=== PATIENT | male | born 1965 | race Caucasian/White ===

== ENCOUNTER 2021-08-30 15:19 | Observation (INO) | payer OTHER ==
--- OUTSIDE RECORDS SUMMARY | 2021-08-30 15:25 | XMS REPORT | Continuity of Care Document ---
:1965 Author Organization [facility] t Address [address] [place] [address] Care Team Providers Name Role Phone Pcp, Does Not Have A Primary Care Physician Danni LEBLANC Attending Clinician Unavailable Therapy, Covid Infusion Attending Clinician Unavailable Chante Fraire MD Attending Clinician Yoli Rodriguez MD Attending Clinician JORDANA CARMONA Attending Clinician Unavailable MINDY CARRERO Attending Clinician Unavailable CATY RODRIGUEZ Attending Clinician Unavailable JANIE Attending Clinician Unavailable SHANNON LIMA Attending Clinician Unavailable CECILY MORA Attending Clinician Unavailable Danni LEBLANC Admitting Clinician Unavailable CATY RODRIGUEZ Admitting Clinician Unavailable MINDY CARRERO Admitting Clinician Unavailable Payers Payer Name Policy Type Policy Number Effective Date Expiration Date S issac [employer] HMO POS [id number] 2019 00:00:00 QPOS Problems Condition Condition Condition Status Onset Resolution Last Treating Co mments Source Name Details Category Date Date Treatment Clinician Date No known No known Disease [facility] active active College problems problems of Medicin e Lateral Lateral Problem Active Univers epicondyli epicondyli it y of tis of tis of [place] right right Physici elbow elbow ans Medial Medial Problem Active Univers epicondyli epicondyli it y of tis of tis of [place] right right Physici elbow elbow ans History of History of Problem Resolve Univers arthritis arthritis d ity of [place] Physici ans History of History of Problem Resolve Univers back pain back pain d ity of [place] Phys[facility] ans History of History of Problem Resolve Univers cardiac cardiac d ity of disorder disorder [place] [facility] History of History of Problem Resolve Univers Gallbladde Gallbladde d [place] problem r problem [place] History of History of Problem Resolve Univers hay fever hay fever d ity of [place] [facility] ans History of History of Problem Resolve Univers hemorrhoid hemorrhoid d it y of s s [place] [facility] History of History of Problem Resolve [facility] myocardial myocardial d [place] of infarction [place] [place] History of History of Problem Resolve Univers Tumor Tumor d ity of [place] [facility] ans Allergies, Adverse Reactions, Alerts Allergy Allergy Status Severity Reaction(s) Onset Inactive Treating Comm ents Source Name Type Date Date Clinician Povidone Propensi Active Itching 2018-08 Unive rs -Iodine ty to 0-07 ity of adverse 00:00: [place] reaction 00 Medical s Branch Povidone Propensi Active Itching 2018-08 [facility] Iodine ty to 0-07 [place] adverse 00:00: of reaction 00 Medicin s to e drug Iodine Drug Active Itching 2018-08 Univers Allergy 0-02 ity of 00:00: [place] 00 Medical Branch POVIDONE Allergy Active Itching 2018-08 [facility] -IODINE 0-02 (WITH 00:00: SOAP) 00 Penicill Propensi Active Hives [facility] ins ty to 8-23 [place] adverse 00:00: of reaction 00 Medicin s to e drug PENICILL Allergy Active Hives [facility] INS 1-19 00:00: 00 Penicill Drug Active Hives 0 Univers ins Allergy 9-03 ity of 00:00: [place] 00 Medical Branch Penicill drug Active Univers ins allergy ity of [place] [facility] ans Family History Family Member Diagnosis Comments Start Date Stop Date Source Unknown Family Family history of Other Uni versity of Member malignant neoplasm [place] [facility] Unknown Family Family history of Other Uni versity of Member cerebrovascular [place] [facility] accident (CVA) Unknown Family Family history of Heart Other University of Member trouble [place] [facility] Unknown Family Family history of Other Uni versity of Member hypertension [place] [facility] ians Unknown Family Family history of Other Uni versity of Member arthritis [place] [facility] Social History Social Habit Start Date Stop Date Quantity Comments Source History [facility] ge of Alcohol Binge Medicine History [facility] ge of Alcohol Frequency Medicin e History [facility] ge of Alcohol Std Drinks Medici ne History of tobacco Chews Tobacco Uni versity of use [facility] Alcohol Comment 2021-05-14 2021-05-14 4 beer a week [facility] of 00:00:00 00:00:00 Medicine Tobacco use and 2019-04-09 2019-04-09 Former user [facility] ollege of exposure 00:00:00 00:00:00 Medicine Alcohol intake 2010-07-20 2010-07-20 .71 /d [facility] 00:00:00 00:00:00 [facility] Sex Ass[birth year] At [birth year] Universit y of 00:00:00 00:00:00 [facility] Smoking Status Start Date Stop Date Source Unknown if ever smoked [facility] Never smoker [facility] o f Medicine Medications Ordered Filled Start Stop Current Ordering Indication Dosage Frequency Signature Comments Components Source Medication Medication Date Date Medication? Clinician (SIG) Name Name somaryb 2020-08- No [id number] 500mg 500 mg, IV Univers (XEVUDY) 10-13 Infusion, ity o f 500 mg in 16:00: 15:10 ONCE, [place] NaCl 0.9% 00 :00 Administer Medi clare (NS) 50 mL over 30 Branch MINI-BAG Minutes, On 08/12/21 at 1000, For [address] able 24 hours refrigerat ed or 6 hours at room temperatur e including transporta tion and infusion time.
Dapaglifloz 0 Yes Take by Ba ylor in 05-14 mouth. [place] Propanediol 13:21: of (FARXIGA) 5 37 Medicin MG TABS e Dapaglifloz Yes Take by Ba y[facility] in 05-14 mouth. [place] Propanediol 13:21: of (FARXIGA) 5 37 Medicin MG TABS e Prasugrel Yes Take by Bayl or HCl 05-14 mouth. [place] (EFFIENT) 13:18: of 10 MG TABS 52 Medicin e Prasugrel Yes Take by Bayl or HCl 05-14 mouth. [place] (EFFIENT) 13:18: of 10 MG TABS 52 Medicin e aspirin 81 Yes 81mg Take 81 mg [facility] MG tablet 05-14 by mouth Colleg e 13:18: daily. of 10 Medicin e atorvastati Yes 40mg Take 40 mg Huseyin n (LIPITOR) 05-14 by mouth Ned ege 40 MG 13:18: daily. of tablet 10 Medicin e lorazepam Yes 1mg Take 1 mg [place] juan (ATIVAN) 1 05-14 by mouth Colle ge MG tablet 13:18: as needed of 10 for Medicin Anxiety. e Coenzyme Yes Take by [facility] Q10 (COQ10 05-14 mouth [place] OR) 13:18: daily. of 10 Medicin e MAGNESIUM Yes Take by Bayl or OR 05-14 [facility] 13:18: daily. of 10 Medicin e POTASSIUM Yes Take by Bayl or OR 05-14 mouth. [place] 13:18: of 10 Medicin e Multiple Yes Take by [facility] Vitamins-Mi 05-14 mouth. Colleg e nerals 13:18: of (MULTIVITAM 10 Medicin IN PO) e Ascorbic Yes Take by [facility] Acid 05-14 mouth. [place] (VITAMIN C 13:18: of OR) 10 Medicin e tadalafil Yes 5mg Take 5 mg [place] juan (CIALIS) 5 05-14 by mouth Colle ge MG tablet 13:18: every 48 of 10 hours as Medicin needed for e Erectile Dysfunctio n. Fluticasone Yes by Nasal Ba ylor Propionate 05-14 route two Ned ege (FLONASE 13:18: times of NA) 10 daily. Medicin e aspirin 81 Yes 81mg Take 81 mg [facility] MG tablet 05-14 by mouth Colleg e 13:18: daily. of 10 Medicin e atorvastati Yes 40mg Take 40 mg Huseyin n (LIPITOR) 05-14 by mouth Ned ege 40 MG 13:18: daily. of tablet 10 Medicin e lorazepam Yes 1mg Take 1 mg [place] juan (ATIVAN) 1 05-14 by mouth Colle ge MG tablet 13:18: as needed of 10 for Medicin Anxiety. e Coenzyme Yes Take by [facility] Q10 (COQ10 05-14 mouth [place] OR) 13:18: daily. of 10 Medicin e MAGNESIUM Yes Take by Bayl or OR 05-14 mouth [place] 13:18: daily. of 10 Medicin e POTASSIUM Yes Take by Bayl or OR 05-14 mouth. [place] 13:18: of 10 Medicin e Multiple Yes Take by [facility] Vitamins-Mi 05-14 mouth. Colleg e nerals 13:18: of (MULTIVITAM 10 Medicin IN PO) e Ascorbic Yes Take by [facility] Acid 05-14 mouth. [place] (VITAMIN C 13:18: of OR) 10 Medicin e tadalafil Yes 5mg Take 5 mg [place] ju[place] (CIALIS) 5 05-14 by mouth Colle ge MG tablet 13:18: every 48 of 10 hours as Medicin needed for e Erectile Dysfunctio n. Fluticasone Yes by Nasal [facility] Propionate 05-14 route two [place] e[place] (FLONASE 13:18: times of NA) 10 daily. Medicin e Ticagrelor 2020- No Take by Ba ylor (BRILINTA) 05-14 mouth two Col lege 90 MG TABS 13:18: 00:00 times of 05 :00 daily. Medicin e Ticagrelor 2020- No Take by Ba ylor (BRILINTA) 05-14 mouth two Col lege 90 MG TABS 13:18: 00:00 times of 05 :00 daily. Medicin e Icosapent 2020- No 2g Take 2 g [place] Ethyl 05-14 by mouth [place] (VASCEPA 13:17: 00:00 two times of OR) 17 :00 daily. Medicin e Icosapent 2020- No 2g Take 2 g [place] Ethyl 05-14 by mouth [place] (VASCEPA 13:17: 00:00 two times of OR) 17 :00 daily. Medicin e Ascorbic 2020-0 Yes Take by [facility] r Acid 05-05 mouth. [place] (VITAMIN C 17:55: of OR) 06 Medicin e tadalafil 2020-0 Yes 5mg Take 5 mg [place] (CIALIS) 5 05-05 by mouth Colle ge MG tablet 17:55: every 48 of 06 hours as Medicin needed for e Erectile Dysfunctio n. Fluticasone 2020-0 Yes by Nasal [facility] Propionate 05-05 route two [facility] e[facility] (FLONASE 17:55: times of NA) 06 daily. Medicin e Ticagrelor 2020-0 Yes Take by [place] (BRILINTA) 05-05 mouth two Ned ege 90 MG TABS 17:55: times of 06 daily. Medicin e aspirin 81 2020-0 Yes 81mg Take 81 mg [facility] MG tablet 05-05 by mouth Colleg e 17:55: daily. of Medicin e atorvastati 2020-0 Yes 40mg Take 40 mg [facility] n (LIPITOR) 05-05 by mouth Ned ege 40 MG 17:55: daily. of tablet Medicin e Icosapent 2020-0 Yes 2g Take 2 g Bayl or Ethyl 05-05 by mouth [place] (VASCEPA 17:55: two times of OR) 06 daily. Medicin e lorazepam 2020-0 Yes 1mg Take 1 mg [place] juan (ATIVAN) 1 05-05 by mouth Colle ge MG tablet 17:55: as needed of 06 for Medicin Anxiety. e Coenzyme 2020-0 Yes Take by [place] r Q10 (COQ10 05-05 mouth [place] OR) 17:55: daily. of 06 Medicin e MAGNESIUM 2020-0 Yes Take by Bayl or OR - mouth [place] 17:55: daily. of 06 Medicin e POTASSIUM 2020-0 Yes Take by Bayl or OR 18 mouth. [place] 17:55: of 06 Medicin e Multiple 2020-0 Yes Take by [facility] Vitamins-Mi - mouth. Collevonnie e nerals 17:55: of (MULTIVITAM 06 Medicin IN PO) e Multiple 2019-0 Yes Take by [facility] Vitamins-Mi - mouth. Colleg e nerals 17:51: of (MULTIVITAM 12 Medicin IN PO) e Ascorbic 2019-0 Yes Take by [facility] Acid 04-09 mouth. [place] (VITAMIN C 17:51: of OR) 12 Medicin e Multiple Yes Take by Bay[facility] r Vitamins-Mi - mouth. [facility] nerals 17:51: of (MULTIVITAM 12 Medicin IN PO) e Ascorbic Yes Take by Bay[facility] r Acid - mouth. [place] (VITAMIN C 17:51: of OR) 12 Medicin e Ticagrelor Yes Take by [place] (BRILINTA) 04-09 mouth two Ned ege 90 MG TABS 17:51: times of 11 daily. Medicin e aspirin 81 Yes 81mg Take 81 mg B [facility] MG tablet 04-09 by mouth Colleg e 17:51: daily. of 11 Medicin e atorvastati Yes 40mg Take 40 mg Huseyin n (LIPITOR) 04-09 by mouth Ned ege 40 MG 17:51: daily. of tablet 11 Medicin e Icosapent Yes 2g Take 2 g Bayl or Ethyl 04-09 by mouth [place] (VASCEPA 17:51: two times of OR) 11 daily. Medicin e lorazepam Yes 1mg Take 1 mg [place] (ATIVAN) 1 04-09 by mouth Colle ge MG tablet 17:51: as needed of 11 for Medicin Anxiety. e Coenzyme Yes Take by [facility] Q10 (COQ10 04-09 [facility] OR) 17:51: daily. of 11 Medicin e MAGNESIUM Yes Take by Bayl or OR 04-09 [facility] 17:51: daily. of 11 Medicin e POTASSIUM Yes Take by Bayl or OR 04-09 mouth. [place] 17:51: of 11 Medicin e Ticagrelor Yes Take by [place] (BRILINTA) - mouth two Ned ege 90 MG TABS 17:51: times of 11 daily. Medicin e aspirin 81 Yes 81mg Take 81 mg [facility] MG tablet 04-[address] [facility] daily. of 11 Medicin e atorvastati Yes 40mg Take 40 mg Huseyin n (LIPITOR) 8- by mouth Ned ege 40 MG 17:51: daily. of tablet 11 Medicin e Icosapent Yes 2g Take 2 g Bayl or Ethyl 8-23 by mouth College (VASCEPA 17:51: two times of OR) 11 daily. Medicin e lorazepam Yes 1mg Take 1 mg [place] (ATIVAN) 1 04-09 by mouth Colle ge MG tablet 17:51: as needed of 11 for Medicin Anxiety. e Coenzyme Yes Take by [facility] Q10 (COQ10 04-09 mouth College OR) 17:51: daily. of 11 Medicin e MAGNESIUM Yes Take by Bayl or OR 04-09 mouth College 17:51: daily. of 11 Medicin e POTASSIUM Yes Take by Bayl or OR 04-09 mouth. College 17:51: of 11 Medicin e MULTIVITAMI Yes Take by Uni vers NS ORAL 04-20 mouth. ity of 16:50: [address] Aspirin Aspirin Yes Univers TABS TABS ity of [place] [facility] Atorvastati Atorvastati Yes U nivers n Calcium n Calcium ity o f 40 MG Oral 40 MG Oral Michael as Tablet Tablet Physici ans Brilinta Brilinta Yes Univers TABS TABS ity of [place] [facility] Vital Signs Vital Name Observation Time Observation Value Comments Source HEIGHT 2020-12-12 180.3 cm 08:00:00 WEIGHT 2020-12-12 74.844 kg 08:00:00 Systolic blood 2021-08-12 123 mm[Hg] Meta of pressure 15:49:00 [facility] Diastolic blood 2021-08-12 78 mm[Hg] Meta o f pressure 15:49:00 [facility] Heart rate 2021-08-12 65 /min [facility] 15:49:00 [facility] Body temperature 2021-08-12 36.39 Aziza [facility] 15:49:00 [facility] Respiratory rate 2021-08-12 16 /min [facility] 15:49:00 [facility] Oxygen saturation 2021-08-12 98 /min [facility] in Arterial blood 15:49:00 [facility] by Pulse oximetry [place] Body height 2021-08-12 180.3 cm University 14:34:00 [facility] Body weight 2021-08-12 77.111 kg University 14:34:00 [facility] BMI 2021-08-12 23.71 kg/m2 University of 14:34:00 [facility] Systolic blood 2021-05-14 114 mm[Hg] [facility] Colleg e of pressure 18:11:00 Medicine Diastolic blood 2021-05-14 73 mm[Hg] [facility] Colle ge of pressure 18:11:00 Medicine Heart rate 2021-05-14 75 /min [facility] 18:11:00 Medicine Body temperature 2021-05-14 37.33 Aziza [facility] Ned ege of 18:11:00 Medicine Body height 2021-05-14 180.3 cm [facility] 18:11:00 Medicine Body weight 2021-05-14 77.837 kg [facility] 18:11:00 Medicine BMI 2021-05-14 23.93 kg/m2 [facility] 18:11:00 Medicine HEIGHT 2020-12-12 180.3 cm 08:00:00 WEIGHT 2020-12-12 74.844 kg 08:00:00 Systolic blood 2020-05-05 124 mm[Hg] [facility] Colleg e of pressure 17:46:00 Medicine Diastolic blood 2020-05-05 76 mm[Hg] [facility] Colle ge of pressure 17:46:00 Medicine Heart rate 2020-05-05 68 /min Pulse Ox-98% [facility] 17:46:00 Medicine Body temperature 2020-05-05 36.67 Aziza [facility] Ned ege of 17:46:00 Medicine Respiratory rate 2020-05-05 16 /min [facility] Ned ege of 17:46:00 Medicine Body height 2020-05-05 180.3 cm [facility] 17:46:00 Medicine Body weight 2020-05-05 79.289 kg [facility] 17:46:00 Medicine BMI 2020-05-05 24.38 kg/m2 [facility] 17:46:00 Medicine Systolic blood 2019-05-24 119 mm[Hg] [facility] Colleg e of pressure 16:39:00 Medicine Diastolic blood 2019-05-24 75 mm[Hg] [facility] Colle ge of pressure 16:39:00 Medicine Heart rate 2019-05-24 86 /min Pulse Ox-98% [facility] 16:39:00 Medicine Body temperature 2019-05-24 36.78 Aziza [facility] Ned ege of 16:39:00 Medicine Respiratory rate 2019-05-24 18 /min [facility] Ned ege of 16:39:00 Medicine Body height 2019-05-24 180.3 cm [facility] 16:39:00 Medicine Body weight 2019-05-24 78.291 kg [facility] 16:39:00 Medicine BMI 2019-05-24 24.07 kg/m2 [facility] 16:39:00 Medicine Systolic blood 2019-04-09 139 mm[Hg] [facility] Colleg e of pressure 16:06:00 Medicine Diastolic blood 2019-04-09 83 mm[Hg] [facility] ge of pressure 16:06:00 Medicine Heart rate 2019-04-09 91 /min [facility] 16:06:00 Medicine Body temperature 2019-04-09 36.83 Aziza [facility] Ned ege of 16:06:00 Medicine Respiratory rate 2019-04-09 16 /min [facility] Ned ege of 16:06:00 Medicine Body height 2019-04-09 180.3 cm [facility] 16:06:00 Medicine Body weight 2019-04-09 85.276 kg [facility] 16:06:00 [facility] BMI 2019-04-09 26.22 kg/m2 [facility] 16:06:00 Medicine Procedures Procedure Date / Time Performing Clinician Source Performed History of [place] [facility] [place] replacement Physicians History of Heart [facility] [place] surgery [facility]icians Plan of Care Planned Activity Planned Date Details Comments Source Future Scheduled 2021-05-14 Screening for malignant [facility] 13:15:06 neoplasm of colon Medicine (procedure) [code = 581537667] Future Scheduled 2021-05-14 COVID-19 Vaccine (1) [facility] 13:15:06 [code = COVID-19 Vaccine Med icine (1)] Future Scheduled 2021-05-14 Hepatitis C screening [facility] 13:15:06 (procedure) [code = Medicine [id number]] Future Scheduled 2021-05-14 Human immunodeficiency [facility] 13:15:06 virus screening Medicine (procedure) [code = 419247338] Future Scheduled 2021-05-14 ZOSTER VACCINE (1 of 2) [facility] 13:15:06 [code = ZOSTER VACCINE (1 Me dicine of 2)] Future Scheduled 2021-05-14 TETANUS SHOT (ADULT) [facility] 13:15:06 [code = TETANUS SHOT Medicin e (ADULT)] Future Scheduled 2021-05-14 FLU VACCINE > 6 MONTHS B [facility] Test 13:15:06 [code = FLU VACCINE > 6 Medi cine MONTHS] Future Scheduled 2021-05-14 Screening for malignant [facility] Test 13:15:06 neoplasm of colon Medicine (procedure) [code = 244022574] Future Scheduled 2021-05-14 COVID-19 Vaccine (1) [facility] Test 13:15:06 [code = COVID-19 Vaccine Med icine (1)] Future Scheduled 2021-05-14 Hepatitis C screening Ba [facility] Test 13:15:06 (procedure) [code = Medicine [id number]] Future Scheduled 2021-05-14 Human immunodeficiency [facility] 13:15:06 virus screening Medicine (procedure) [code = 781130405] Future Scheduled 2021-05-14 ZOSTER VACCINE (1 of 2) [facility] 13:15:06 [code = ZOSTER VACCINE (1 Me dicine of 2)] Future Scheduled 2021-05-14 TETANUS SHOT (ADULT) [facility] Test 13:15:06 [code = TETANUS SHOT Medicin e (ADULT)] Future Scheduled 2021-05-14 FLU VACCINE > 6 MONTHS B [facility] Test 13:15:06 [code = FLU VACCINE > 6 Medi cine MONTHS] Future Scheduled COLON CANCER SCREENING: [facility] COLONOSCOPY [code = COLON Me dicine CANCER SCREENING: COLONOSCOPY] Future Scheduled TETANUS SHOT (ADULT) [facility] [code = TETANUS SHOT Medicin e (ADULT)] Future Scheduled HIV SCREENING [code = HIV [facility] SCREENING] Medicine Future Scheduled ZOSTER VACCINE (1 of 2) [facility] [code = ZOSTER VACCINE (1 Me dicine of 2)] Future Scheduled FLU VACCINE > 6 MONTHS [facility] [code = FLU VACCINE > 6 Medi cine MONTHS] Future Scheduled COLON CANCER SCREENING: [facility] COLONOSCOPY [code = COLON Me dicine CANCER SCREENING: COLONOSCOPY] Future Scheduled TETANUS SHOT (ADULT) [facility] Test [code = TETANUS SHOT Medicin e (ADULT)] Future Scheduled BMI FOLLOW UP PLAN [code [facility] Test = BMI FOLLOW UP PLAN] Medici ne Future Scheduled HIV SCREENING [code = HIV [facility] Test SCREENING] Medicine Future Scheduled FLU VACCINE > 6 MONTHS [facility] [employer] [employer] [facility] Test [code = FLU VACCINE > 6 Medi cine MONTHS] Future Scheduled COLON CANCER SCREENING: [facility] Test COLONOSCOPY [code = COLON Me dicine CANCER SCREENING: COLONOSCOPY] Future Scheduled TETANUS SHOT (ADULT) [facility] Test [code = TETANUS SHOT Medicin e (ADULT)] Future Scheduled HIV SCREENING [code = HIV [facility] Test SCREENING] Medicine Future Scheduled FLU VACCINE > 6 MONTHS B [facility] Test [code = FLU VACCINE > 6 Medi cine MONTHS] Encounters Start End Encounter Admission Attending Care Care Encounter Source Date/Time Date/Time Type Type Clinicians Facility Department ID 2021-05-26 Inpatient ER BENJI, [facility] Cardiology [id number] SLE 15:53:55 JAMUNA 2021-08-12 2021-08-12 Nurse Therapy, Clc Covid Infusion [facility] [id number] [facility] 08:30:00 09:30:[facility] [id number] ity of CLEAR [id number] [facility] [phone] [facility] MEDICAL [address] OFFICE BUILDING 2021-05-14 2021-05-14 Office JUDY Rodriguez [id number] [facility] 13:05:06 13:25:06 Visit Satnam Monzon [id number] College [id number] [facility] 510 e 2021-05-14 2021-05-[address] [facility] [id number] SLE 00:00:00 00:00:00 MAYE 2020-10-20 2020-10-[address] [facility] [id number] SLE 00:00:00 00:00:00 2020-05-05 2020-05-05 Office JDUY Rodriguez [id number] [facility] 12:39:17 13:50:25 Visit Satnam Monzon [id number] College [id number] [facility] 510 e 2020-05-05 2020-05-[address] [facility] [id number] [facility] 00:00:00 00:00:00 SATNAM 2019-09-13 2019-09-13 Appointmen ASHLI LIMA Orthopedics [id number] [facility] 10:45:00 10:45:00 t; Keely MCCARTY. at [facility] Femi LIMA Medicine Physici M.D. [facility] [address] 2019-05-24 2019-05-[address] [facility] [id number] [facility] 11:25:01 11:45:01 Visit Satnam Kent Nicolás [id number] College [id number] of [id number] [facility] veronica 510 e 2019-04-09 2019-04-09 Office Michael [facility] [id number] [facility] 10:56:18 12:49:45 Visit Satnam Kent AMBULATOR [id number] College Y [id number] of [id number] [facility] veronica 805 e Results Test Description Test Time Test Comments Results Result [facility] e Comments MR, ABDOMEN, WITH 2021-04-19 NEUROENDOCRINE 7 TUMOR Unlisted 18:30:00 Reason for Exam - Click Yes and Enter [facility] - Reason Below->Yes [facility]ENTER[facility]: Unlisted Reason for TAVIA COPELAND Exam->neuroendocrin LYNN : e rumor of pancreas 1965 Sex: M *FINAL REPORT MRI of the abdomen dated May 14, 2021 COMPARISON: May 05, 2020 Comment: Multiplanar T1 and T2-weighted images of the abdomen, postcontrast axial and coronal T1-weighted images of the abdomen were obtained. Liver and spleen are normal in size. No abnormal enhancement or suspicious mass is seen in the liver. Gallbladder is surgically absent. No biliary dilatation is seen. Patient is status post Whipple's procedure. The remaining pancreas is unremarkable. No enhancing pancreatic mass or pancreatic duct dilatation is present. The pancreaticojejunosto my anastomosis is normal in appearance. The adrenals are normal in size. Both kidneys are normal in size and functioning. No adenopathy, ascites is seen in the abdomen. The visualized small and large bowel are unremarkable. IMPRESSION:1. Status post Whipple's procedure.2. No metastatic disease in the abdomen or local pancreatic recurrence. Signed: Lul Gaitan MDReport Verified Date/Time: 05/14/2021 18:30:15 Reading Location: [facility] [id number] CT Body Reading Room C METABOLIC PANEL 2020-12-13 05:37:00 Test Item Value Reference Range Interpretation Comme nts SODIUM (BEAKER) (test code 141 meq/L 136-145 = 381) POTASSIUM (BEAKER) (test 4.1 meq/L 3.5-5.1 code = 379) CHLORIDE (BEAKER) (test 109 meq/L 98-107 H code = 382) CO2 (BEAKER) (test code = 23 meq/L 22-29 355) BLOOD UREA NITROGEN 17 mg/dL 7-21 (BEAKER) (test code = 354) CREATININE (BEAKER) (test 0.83 mg/dL 0.57-1.25 code = 358) GLUCOSE RANDOM (BEAKER) 109 mg/dL 70-105 H (test code = 652) CALCIUM (BEAKER) (test code 8.6 mg/dL 8.4-10.2 = 697) EGFR (BEAKER) (test code = 97 mL/min/1.73 sq m ESTIMATED GFR IS NOT 1092) ACCURATE CRE ATININE CLEARANCE IN AL EDICTING GLOMERULAR FILT RATION RATE. ESTIMATED GFR IS NOT APPLICABLE FOR DIALYSIS PATIENTS. Mesh Cutter ID - MARCUS [facility] (HEMOGRAM ONLY)2020-12-13 04:51:00 Test Item Value Reference Range Interpretation Comments WHITE BLOOD CELL COUNT (BEAKER) 8.2 K/ L 3.5-10.5 (test code = 775) RED BLOOD CELL COUNT (BEAKER) 4.25 M/ L 4.63-6.08 L (test code = 761) HEMOGLOBIN (BEAKER) (test code = 12.6 GM/DL 13.7-17.5 L 410) HEMATOCRIT (BEAKER) (test code = 36.0 % 40.1-51.0 L 411) MEAN CORPUSCULAR VOLUME (BEAKER) 84.7 fL 79.0-92.2 (test code = 753) MEAN CORPUSCULAR HEMOGLOBIN 29.6 pg 25.7-32.2 (BEAKER) (test code = 751) MEAN CORPUSCULAR HEMOGLOBIN CONC 35.0 GM/DL 32.3-36.5 (BEAKER) (test code = 752) RED CELL DISTRIBUTION WIDTH 12.1 % 11.6-14.4 (BEAKER) (test code = 412) PLATELET COUNT (BEAKER) (test 162 K/CU MM 150-450 code = 756) MEAN PLATELET VOLUME (BEAKER) 10.7 fL 9.4-12.4 (test code = 754) NUCLEATED RED BLOOD CELLS 0 /100 WBC 0-0 (BEAKER) (test code = 413) [id number] 15:15:00 Test Item Value Reference Range Interpretation Comments ACTIVATED CLOTTING TIME 136 sec : 74 -137 seconds, (BEAKER) (test code = Baseli ne: TESTED AT 441) [address], [facility] 30: Mesh Cutter/Techni shaun ID = [id number] for [facility] [id number] 10:37:00 Test Item Value Reference Range Interpretation Comments ACTIVATED CLOTTING TIME 329 sec : 74 -137 seconds, (BEAKER) (test code = Baseli ne: TESTED AT 441) [address], [facility] 30: Mesh Cutter/Techni shaun ID = [id number] for At [place]il[place], Julia [id number] 10:04:00 Test Item Value Reference Range Interpretation Comments ACTIVATED CLOTTING TIME 296 sec : 74 -137 seconds, (BEAKER) (test code = Baseli ne: TESTED AT 441) [address], [facility] 30: Mesh Cutter/Techni shaun ID = [id number] for At [place], Julia [id number] 09:44:00 Test Item Value Reference Range Interpretation Comments ACTIVATED CLOTTING TIME 307 sec : 74 -137 seconds, (BEAKER) (test code = Baseli ne: TESTED AT 441) [facility] [address] [facility] [place], [address]: Mesh Cutter/Techni shaun ID = [id number] for At Julia little BASIC METABOLIC [id number] 05:55:00 Test Item Value Reference Range Interpretation Comments SODIUM (BEAKER) 140 meq/L 136-145 (test code = 381) POTASSIUM (BEAKER) 4.0 meq/L 3.5-5.1 (test code = 379) CHLORIDE (BEAKER) 107 meq/L 98-107 (test code = 382) CO2 (BEAKER) (test 24 meq/L 22-29 code = 355) BLOOD UREA NITROGEN 18 mg/dL 7-21 (BEAKER) (test code = 354) CREATININE (BEAKER) 0.91 mg/dL 0.57-1.25 (test code = 358) GLUCOSE RANDOM 105 mg/dL 70-105 (BEAKER) (test code = 652) CALCIUM (BEAKER) 8.6 mg/dL 8.4-10.2 (test code = 697) EGFR (BEAKER) (test 87 mL/min/1.73 ESTIMA GLENNY GFR IS code = 1092) sq m NOT ACCURATE CREATININE CLEARANCE IN PREDICTING GLOMERULAR FILTRATION RATE . ESTIMATED GFR I S NOT APPLICABLE FOR DIALYSIS PATIEN TS. Mesh Cutter ID - MARCUS [facility] (HEMOGRAM ONLY)2020-12-12 04:45:00 Test Item Value Reference Range Interpretation Comments WHITE BLOOD CELL COUNT (BEAKER) 7.4 K/ L 3.5-10.5 (test code = 775) RED BLOOD CELL COUNT (BEAKER) 4.54 M/ L 4.63-6.08 L (test code = 761) HEMOGLOBIN (BEAKER) (test code = 13.3 GM/DL 13.7-17.5 L 410) HEMATOCRIT (BEAKER) (test code = 38.7 % 40.1-51.0 L 411) MEAN CORPUSCULAR VOLUME (BEAKER) 85.2 fL 79.0-92.2 (test code = 753) MEAN CORPUSCULAR HEMOGLOBIN 29.3 pg 25.7-32.2 (BEAKER) (test code = 751) MEAN CORPUSCULAR HEMOGLOBIN CONC 34.4 GM/DL 32.3-36.5 (BEAKER) (test code = 752) RED CELL DISTRIBUTION WIDTH 12.0 % 11.6-14.4 (BEAKER) (test code = 412) PLATELET COUNT (BEAKER) (test 167 K/CU MM 150-450 code = 756) MEAN PLATELET VOLUME (BEAKER) 10.6 fL 9.4-12.4 (test code = 754) NUCLEATED RED BLOOD CELLS 0 /100 WBC 0-0 (BEAKER) (test code = 413) BASIC METABOLIC [id number] 06:27:00 Test Item Value Reference Range Interpretation Comments SODIUM (BEAKER) 141 meq/L 136-145 (test code = 381) POTASSIUM (BEAKER) 4.2 meq/L 3.5-5.1 (test code = 379) CHLORIDE (BEAKER) 106 meq/L 98-107 (test code = 382) CO2 (BEAKER) (test 24 meq/L 22-29 code = 355) BLOOD UREA NITROGEN 15 mg/dL 7-21 (BEAKER) (test code = 354) CREATININE (BEAKER) 0.83 mg/dL 0.57-1.25 (test code = 358) GLUCOSE RANDOM 105 mg/dL 70-105 (BEAKER) (test code = 652) CALCIUM (BEAKER) 9.0 mg/dL 8.4-10.2 (test code = 697) EGFR (BEAKER) (test 97 mL/min/1.73 ESTIMA GLENNY GFR IS code = 1092) sq m NOT ACCURATE CREATININE CLEARANCE IN PREDICTING GLOMERULAR FILTRATION RATE . ESTIMATED GFR I S NOT APPLICABLE FOR DIALYSIS PATIEN TS. Mesh Cutter ID - MARCUS [facility] (HEMOGRAM ONLY)2020-12-11 05:42:00 Test Item Value Reference Range Interpretation Comments WHITE BLOOD CELL COUNT (BEAKER) 8.2 K/ L 3.5-10.5 (test code = 775) RED BLOOD CELL COUNT (BEAKER) 4.69 M/ L 4.63-6.08 (test code = 761) HEMOGLOBIN (BEAKER) (test code = 13.7 GM/DL 13.7-17.5 410) HEMATOCRIT (BEAKER) (test code = 39.6 % 40.1-51.0 L 411) MEAN CORPUSCULAR VOLUME (BEAKER) 84.4 fL 79.0-92.2 (test code = 753) MEAN CORPUSCULAR HEMOGLOBIN 29.2 pg 25.7-32.2 (BEAKER) (test code = 751) MEAN CORPUSCULAR HEMOGLOBIN CONC 34.6 GM/DL 32.3-36.5 (BEAKER) (test code = 752) RED CELL DISTRIBUTION WIDTH 12.1 % 11.6-14.4 (BEAKER) (test code = 412) PLATELET COUNT (BEAKER) (test 168 K/CU MM 150-450 code = 756) MEAN PLATELET VOLUME (BEAKER) 10.7 fL 9.4-12.4 (test code = 754) NUCLEATED RED BLOOD CELLS 0 /100 WBC 0-0 (BEAKER) (test code = 413) BASIC METABOLIC [id number] 07:01:00 Test Item Value Reference Range Interpretation Comments SODIUM (BEAKER) 140 meq/L 136-145 (test code = 381) POTASSIUM (BEAKER) 4.1 meq/L 3.5-5.1 Specimen slightly (test code = 379) hemolyzed CHLORIDE (BEAKER) 109 meq/L 98-107 H (test code = 382) CO2 (BEAKER) (test 23 meq/L 22-29 code = 355) BLOOD UREA NITROGEN 16 mg/dL 7-21 (BEAKER) (test code = 354) CREATININE (BEAKER) 0.77 mg/dL 0.57-1.25 Specimen slightly (test code = 358) hemolyzed GLUCOSE RANDOM 108 mg/dL 70-105 H (BEAKER) (test code = 652) CALCIUM (BEAKER) 8.5 mg/dL 8.4-10.2 (test code = 697) EGFR (BEAKER) (test 106 mL/min/1.73 ESTIM ATED GFR IS code = 1092) sq m NOT ACCURATE CREATININE CLEARANCE IN PREDICTING GLOMERULAR FILTRATION RATE . ESTIMATED GFR I S NOT APPLICABLE FOR DIALYSIS PATIEN TS. Mesh Cutter ID - MARCUS [facility] (HEMOGRAM ONLY)2020-12-10 06:28:00 Test Item Value Reference Range Interpretation Comments WHITE BLOOD CELL COUNT (BEAKER) 7.1 K/ L 3.5-10.5 (test code = 775) RED BLOOD CELL COUNT (BEAKER) 4.24 M/ L 4.63-6.08 L (test code = 761) HEMOGLOBIN (BEAKER) (test code = 12.6 GM/DL 13.7-17.5 L 410) HEMATOCRIT (BEAKER) (test code = 37.0 % 40.1-51.0 L 411) MEAN CORPUSCULAR VOLUME (BEAKER) 87.3 fL 79.0-92.2 (test code = 753) MEAN CORPUSCULAR HEMOGLOBIN 29.7 pg 25.7-32.2 (BEAKER) (test code = 751) MEAN CORPUSCULAR HEMOGLOBIN CONC 34.1 GM/DL 32.3-36.5 (BEAKER) (test code = 752) RED CELL DISTRIBUTION WIDTH 11.9 % 11.6-14.4 (BEAKER) (test code = 412) PLATELET COUNT (BEAKER) (test 146 K/CU MM 150-450 L code = 756) MEAN PLATELET VOLUME (BEAKER) 10.7 fL 9.4-12.4 (test code = 754) NUCLEATED RED BLOOD CELLS 0 /100 WBC 0-0 (BEAKER) (test code = 413) BASIC METABOLIC [id number] 06:40:00 Test Item Value Reference Range Interpretation Comments SODIUM (BEAKER) 142 meq/L 136-145 (test code = 381) POTASSIUM (BEAKER) 4.3 meq/L 3.5-5.1 (test code = 379) CHLORIDE (BEAKER) 110 meq/L 98-107 H (test code = 382) CO2 (BEAKER) (test 24 meq/L 22-29 code = 355) BLOOD UREA NITROGEN 14 mg/dL 7-21 (BEAKER) (test code = 354) CREATININE (BEAKER) 0.82 mg/dL 0.57-1.25 (test code = 358) GLUCOSE RANDOM 102 mg/dL 70-105 (BEAKER) (test code = 652) CALCIUM (BEAKER) 8.7 mg/dL 8.4-10.2 (test code = 697) EGFR (BEAKER) (test 98 mL/min/1.73 ESTIMA GLENNY GFR IS code = 1092) sq m NOT ACCURATE CREATININE CLEARANCE IN PREDICTING GLOMERULAR FILTRATION RATE . ESTIMATED GFR I S NOT APPLICABLE FOR DIALYSIS PATIEN TS. Mesh Cutter ID - MARCUS [id number] 06:40:00 Test Item Value Reference Range Interpretation Comments MAGNESIUM (BEAKER) (test code = 2.0 mg/dL 1.6-2.6 627) Mesh Cutter ID - MARCUS [facility] (HEMOGRAM ONLY)2020-12-09 05:53:00 Test Item Value Reference Range Interpretation Comments WHITE BLOOD CELL COUNT (BEAKER) 6.4 K/ L 3.5-10.5 (test code = 775) RED BLOOD CELL COUNT (BEAKER) 4.39 M/ L 4.63-6.08 L (test code = 761) HEMOGLOBIN (BEAKER) (test code = 12.9 GM/DL 13.7-17.5 L 410) HEMATOCRIT (BEAKER) (test code = 37.4 % 40.1-51.0 L 411) MEAN CORPUSCULAR VOLUME (BEAKER) 85.2 fL 79.0-92.2 (test code = 753) MEAN CORPUSCULAR HEMOGLOBIN 29.4 pg 25.7-32.2 (BEAKER) (test code = 751) MEAN CORPUSCULAR HEMOGLOBIN CONC 34.5 GM/DL 32.3-36.5 (BEAKER) (test code = 752) RED CELL DISTRIBUTION WIDTH 12.3 % 11.6-14.4 (BEAKER) (test code = 412) PLATELET COUNT (BEAKER) (test 161 K/CU MM 150-450 code = 756) MEAN PLATELET VOLUME (BEAKER) 10.6 fL 9.4-12.4 (test code = 754) NUCLEATED RED BLOOD CELLS 0 /100 WBC 0-0 (BEAKER) (test code = 413) SARS-COV2/RT-PCR ([facility])2020-12-09 04:27:00 Test Item Value Reference Range Interpretation Comments SARS-COV2/RT-PCR (test Negative Not Detected, Negative, code = 6285500) See external report for linked test SARS-COV-[address] [facility] DMITRY (test code = 2464481) Negative result for this test determines that SARS-CoV-2 RNA was not present in the specimen above the Limit of Detection (LOD). However, Negative results do not preclude SARS-CoV-2 infection and should not be used as the sole basis for treatment or patient management decisions. Negative results mustbe combined with clinical observations, patient history, and epidemiological information. A false negative result may occur if a specimen is improperly collected, transported or handled. A false negative result should be considered if patient's recent exposures or clinical presentation indicate that COVID-19 (SARS-CoV-2) is likely and diagnostic tests for other causes of illness are negative. Re-testing should be considered in cases of suspected false negatives.The limit of detection for this assay is 800 copies/mL.This SARS CoV-2 test is a real-time RT-PCR test intended for the qualitative detection of nucleic acid from SARS-CoV-2 in a nasopharyngeal swab specimen collected from individuals susp ected of COVID-19 by their healthcare provider.This test has not been Food and Drug Administration (FDA) cleared or approved. This is a modified version of an approved Emergency Use Authorization (EUA) and is in the process of review by the FDA. Once authorized by the FDA, the issued EUA will be effective until the declaration that circumstances exist justifying the authorization of the emergency use of in vitro diagnostic tests for detection and/or diagnosis of COVID-19 is terminated under Section 564(b)(2) of the Act or the EUA is revoked under Section 564(g) of the Act.Fact Sheet for Healthcare Providers:https://www.[employer]/sites/default/files/product/documents/Fact_Shee b_ZF_Sqmljfmbh_Jxzv_XFCW-MfN-2.pdfFact Sheet for Healthcare Patients:https://www.[employer]/sites/default/files/product/ documents/Raju_Eawfh_Cxukmwvg_Fjtr_GNAT-EbW-8.pdfPerforming Laboratory:[place] [address], [place] [address]QICGAUMD AGGREGATION: FUNCTION [id number] 13:37:00 Test Item Value Reference Range Interpretation Comments [id number] Kel Gordillo M.D. (BEAKER) (test code = (electonic signature) 5834) PLATELET COUNT AGG 168 K/CU MM 150-450 (BEAKER) (test code = 2656) ADP (BEAKER) (test code 0 % 62-100 L = 4634) PLATELET RICH 276 k/cu mm 200-300 PLASMA(BEAKER) (test code = 2134) PLATELET FUNCTION Pattern of SCREEN INTERPRETATION disaggregation present (BEAKER) (test code = with ADP which may be 4655) characteristic of P2Y12 inhibitor effect. Correlation with medication history is required. Platelet Function Screen results may be falsely low with platelet counts<75,000/cu mm.Mesh Cutter ID- [id number], ABDOMEN, [id number] 14:19:00 Unlisted Reason for Exam - Click Yes and Enter Reason Below->Yes Unlisted Reason for Exam->neuroendocrine tumorFINAL REPORT TECHNIQUE: MRI of the abdomen and MRCP WITHOUT and WITH intravenous contrast. 3- D volume reconstructions were obtained to evaluate the biliary ductal system. INDICATION: neuroendocrine tumor. COMPARISON: CT from 05/18/2019. FINDINGS: ABSENCE OF INTRAVENOUS CONTRAST DECREASES SENSITIVITY FOR DETECTION OF FOCAL LESIONS AND VASCULAR PATHOLOGY. LOWER THORAX: Unremarkable. LIVER: No hepatic signal abnormality. No focal hepatic lesions. A linear area of hypoenhancement i n segment IV as seen on axial portal venous phase image 64. This on delayed phase imaging is most likely a delayed filling hepatic vein. BILIARY: Prior cholecystectomy. No biliary ductal dilatation or filling defect. Prior hepaticojejunostomy. SPLEEN: No splenomegaly.PANCREAS: Prior Whipple procedure. No recurrent mass. The residual pancreas is atrophic. ADRENALS: No adrenal nodules.KIDNEYS/URETERS: No hydronephrosis or solid mass lesions. PERITONEUM/RETROPERITONEUM: No free fluid.LYMPH NODES: No lymphadenopathy. There is a mildly prominent mesenteric lymph nodes which measure up to 0.7 cm in short axis dimension and are likely reactive. Close attention on follow-up imaging is recommended.VESSELS:Conventional hepatic arterial anatomy. GI TRACT: Prior Whipple procedure with gastrojejunostomy. BONES AND SOFT TISSUES: Unremarkable. IMPRESSION: 1.Prior Whipple procedure without recurrent or metastatic disease. 2.The prominent mesenteric lymph nodes are unchanged and most likely reactive. Signed: Markus Reyes MDReport Verified Date/Time: 05/05/2020 14:19:47 Reading Location: [facility] B1 C013Y CT Body Reading Room [U] XRAY ELBOW MIN 3 VWS RIGHT [id number] 2019-09-13 10:28:00Images acquired, not reported on this accession number. [facility] PhysiciansFUNGUS CULTURE + [id number] 15:43:00 Test Item Value Reference Range Interpretation Comments CULTURE (BEAKER) (test No fungus isolated in code = 1095) 28 days FUNGUS SMEAR (BEAKER) No fungi seen (test code = 1406) OVA AND PARASITE [id number] 07:25:00 Test Item Value Reference Range Interpretation Comments DIRECT SMEAR - O\\T\\P No ova or parasites No ova or parasites (BEAKER) (test code = seen seen 196) CONCENTRATE SMEAR - No ova or parasites No ova or parasites O\\T\\P (BEAKER) (test seen seen code = 247) TRICHROME SMEAR - No ova or parasites No ova or parasites O\\T\\P (BEAKER) (test seen seen code = 248) COMPREHENSIVE METABOLIC [id number] 06:20:00 Test Item Value Reference Range Interpretation Comments TOTAL PROTEIN 6.2 gm/dL 6.0-8.3 (BEAKER) (test code = 770) ALBUMIN (BEAKER) 3.7 g/dL 3.5-5.0 (test code = 1145) ALKALINE PHOSPHATASE 81 U/L 40-150 (BEAKER) (test code = 346) BILIRUBIN TOTAL 1.7 mg/dL 0.2-1.2 H (BEAKER) (test code = 377) SODIUM (BEAKER) (test 134 meq/L 136-145 L code = 381) POTASSIUM (BEAKER) 3.6 meq/L 3.5-5.1 (test code = 379) CHLORIDE (BEAKER) 103 meq/L 98-107 (test code = 382) CO2 (BEAKER) (test 24 meq/L 22-29 code = 355) BLOOD UREA NITROGEN 11 mg/dL 7-21 (BEAKER) (test code = 354) CREATININE (BEAKER) 0.75 mg/dL 0.57-1.25 (test code = 358) GLUCOSE RANDOM 106 mg/dL 70-105 H (BEAKER) (test code = 652) CALCIUM (BEAKER) 8.9 mg/dL 8.4-10.2 (test code = 697) AST (SGOT) (BEAKER) 55 U/L 5-34 H (test code = 353) ALT (SGPT) (BEAKER) 117 U/L 6-55 H (test code = 347) EGFR (BEAKER) (test 109 ESTIMATE D GFR IS code = 1092) mL/min/1.73 sq NOT ACCURA TE m CREATININE CLEARANCE IN PREDICTING GLOMERULAR FILTRATION RATE . ESTIMATED GFR I S NOT APPLICABLE FOR DIALYSIS PATIEN TS. CBC (HEMOGRAM ONLY)2019-05-22 05:30:00 Test Item Value Reference Range Interpretation Comments WHITE BLOOD CELL COUNT (BEAKER) 8.6 K/ L 3.5-10.5 (test code = 775) RED BLOOD CELL COUNT (BEAKER) 4.28 M/ L 4.63-6.08 L (test code = 761) HEMOGLOBIN (BEAKER) (test code = 12.3 GM/DL 13.7-17.5 L 410) HEMATOCRIT (BEAKER) (test code = 34.7 % 40.1-51.0 L 411) MEAN CORPUSCULAR VOLUME (BEAKER) 81.1 fL 79.0-92.2 (test code = 753) MEAN CORPUSCULAR HEMOGLOBIN 28.7 pg 25.7-32.2 (BEAKER) (test code = 751) MEAN CORPUSCULAR HEMOGLOBIN CONC 35.4 GM/DL 32.3-36.5 (BEAKER) (test code = 752) RED CELL DISTRIBUTION WIDTH 11.9 % 11.6-14.4 (BEAKER) (test code = 412) PLATELET COUNT (BEAKER) (test 261 K/CU MM 150-450 code = 756) MEAN PLATELET VOLUME (BEAKER) 10.4 fL 9.4-12.4 (test code = 754) NUCLEATED RED BLOOD CELLS 0 /100 WBC 0-0 (BEAKER) (test code = 413) STOOL CULTURE + SHIGA [id number] 16:23:00 Test Item Value Reference Range Interpretation Comments CULTURE (BEAKER) No Salmonella, Shigella (test code = 1095) or Campylobacter isolated STOOL PATH [id number] 16:23:00 Test Item Value Reference Range Interpretation Comments PATHOGEN EXAM CHARGED (BEAKER) (test Done code = 7421) SHIGA TOXIN [id number] 16:08:00 Test Item Value Reference Range Interpretation Comments SHIGA TOXIN 1 (BEAKER) (test Not detected Not detected code = 2177) SHIGA TOXIN 2 (BEAKER) (test Not detected Not detected code = 2179) GI PATHOGEN PROFILE BY [id number] 13:01:00 Test Item Value Reference Range Interpretation Comments CAMPYLOBACTER (PCR) (test code = Not detected Not detected 20160220) PLESIOMONAS SHIGELLOIDES (PCR) Not detected Not detected (test code = 20160224) SALMONELLA (PCR) (test code = Not detected Not detected ) YERSINIA ENTEROCOLITICA (PCR) Not detected Not detected (test code = 7204080) VIBRIO CHOLERAE (PCR) (test code Not detected Not detected = 20160319) ENTEROAGGREGATIVE E. COLI (EAEC) Not detected Not detected BY PCR (test code = 5456585) ENTEROPATHOGENIC E. COLI (EPEC) Not detected Not detected BY PCR (test code = 4767072) ENTEROTOXIGENIC E. COLI (ETEC) Not detected Not detected LT/ST BY PCR (test code = 6890540) SHIGA-LIKE TOXIN-PRODUCING E. Not detected Not detected COLI (STEC) STX1/STX2 (test code = 7017721) E. COLI O157 (PCR) (test code = 7138920) SHIGELLA/ENTEROINVASIVE E. COLI Not detected Not detected (EIEC) BY PCR (test code = 20160325) CRYPTOSPORIDIUM (PCR) (test code Not detected Not detected = 20160326) CYCLOSPORA CAYETANENSIS (PCR) Not detected Not detected (test code = ) ENTAMOEBA HISTOLYTICA (PCR) Not detected Not detected (test code = 20160418) GIARDIA LAMBLIA (PCR) (test code Not detected Not detected = 20160419) ADENOVIRUS F 40/41 (PCR) (test Not detected Not detected code = 20160420) ASTROVIRUS (PCR) (test code = Not detected Not detected 20160421) NOROVIRUS GI/GII (PCR) (test Not detected Not detected code = 8416020) ROTAVIRUS A (PCR) (test code = Not detected Not detected 20160423) SAPOVIRUS (I, II, IV, V) BY PCR Not detected Not detected (test code = 3856581) VIBRIO (PARAHAEMOLYTICUS, Not detected Not detected VULNIFICUS) (test code = 8601124) Other viruses, parasites and bacteria not targeted by this PCR panel cannot be excluded; therefore clinical correlation and follow up of serology, culture results, and other molecular studies is required. The results are not intended to be used as the sole means for clinical diagnosis or patient management decisions. This sample was tested at the [facility] Molecular Diagnostics Laboratory using the [employer] Gastrointestinal Panel. It is FDA cleared and has been verified and approved by the [facility] Molecular Diagnostics Laboratory for clinical use. This laboratory is CLIA-certified and College ofAmerican Pathologists (CAP)-accredited to perform high complexity testing.PHOSPHORUS 2019-05-20 11:53:00 Test Item Value Reference Range Interpretation Comments PHOSPHORUS (BEAKER) (test code = 3.0 mg/dL 2.3-4.7 604) [id number] 11:53:00 Test Item Value Reference Range Interpretation Comments MAGNESIUM (BEAKER) (test code = 1.7 mg/dL 1.6-2.6 627) BASIC METABOLIC [id number] 11:53:00 Test Item Value Reference Range Interpretation Comments SODIUM (BEAKER) 136 meq/L 136-145 (test code = 381) POTASSIUM (BEAKER) 3.7 meq/L 3.5-5.1 (test code = 379) CHLORIDE (BEAKER) 105 meq/L 98-107 (test code = 382) CO2 (BEAKER) (test 22 meq/L 22-29 code = 355) BLOOD UREA NITROGEN 13 mg/dL 7-21 (BEAKER) (test code = 354) CREATININE (BEAKER) 0.74 mg/dL 0.57-1.25 (test code = 358) GLUCOSE RANDOM 109 mg/dL 70-105 H (BEAKER) (test code = 652) CALCIUM (BEAKER) 8.6 mg/dL 8.4-10.2 (test code = 697) EGFR (BEAKER) (test 111 mL/min/1.73 ESTIM ATED GFR IS code = 1092) sq m NOT ACCURATE CREATININE CLEARANCE IN PREDICTING GLOMERULAR FILTRATION RATE . ESTIMATED GFR I S NOT APPLICABLE FOR DIALYSIS PATIEN TS. HEPATIC FUNCTION [id number] 11:53:00 Test Item Value Reference Range Interpretation Comments TOTAL PROTEIN (BEAKER) (test code = 6.1 gm/dL 6.0-8.3 770) ALBUMIN (BEAKER) (test code = 1145) 3.5 g/dL 3.5-5.0 BILIRUBIN TOTAL (BEAKER) (test code 1.6 mg/dL 0.2-1.2 H = 377) BILIRUBIN DIRECT (BEAKER) (test 0.7 mg/dL 0.1-0.5 H code = 706) ALKALINE PHOSPHATASE (BEAKER) (test 98 U/L 40-150 code = 346) AST (SGOT) (BEAKER) (test code = 186 U/L 5-34 H 353) ALT (SGPT) (BEAKER) (test code = 243 U/L 6-55 H 347) C. DIFFICILE GDH [id number] 11:36:00 Test Item Value Reference Range Interpretation Comments CDT TOXIN (test code Negative Negative = 8118091051) CDT GDH ANTIGEN (test Negative Negative No ind ication of code = 8459534575) Clostridi um difficile infection and n o colonization. Discontinue ent samuel isolation and t herapy. Testing performed by [employer] Rapid Cassette Assay. For GDH, published sensitivity of the assay is 98.7% compared to cytotoxicity testing. For Toxin AB, published sensitivity is 87.8% and specificity 99.4% compared to cytotoxicity testing.Verification of kit performance was done by the [facility] Microbiology Lab prior to clinical use.CBC W/PLT COUNT & AUTO [id number] 10:51:00 Test Item Value Reference Range Interpretation Comments WHITE BLOOD CELL COUNT (BEAKER) 10.7 K/ L 3.5-10.5 H (test code = 775) RED BLOOD CELL COUNT (BEAKER) 4.34 M/ L 4.63-6.08 L (test code = 761) HEMOGLOBIN (BEAKER) (test code = 12.3 GM/DL 13.7-17.5 L 410) HEMATOCRIT (BEAKER) (test code = 36.0 % 40.1-51.0 L 411) MEAN CORPUSCULAR VOLUME (BEAKER) 82.9 fL 79.0-92.2 (test code = 753) MEAN CORPUSCULAR HEMOGLOBIN 28.3 pg 25.7-32.2 (BEAKER) (test code = 751) MEAN CORPUSCULAR HEMOGLOBIN CONC 34.2 GM/DL 32.3-36.5 (BEAKER) (test code = 752) RED CELL DISTRIBUTION WIDTH 11.8 % 11.6-14.4 (BEAKER) (test code = 412) PLATELET COUNT (BEAKER) (test 220 K/CU MM 150-450 code = 756) MEAN PLATELET VOLUME (BEAKER) 10.2 fL 9.4-12.4 (test code = 754) NUCLEATED RED BLOOD CELLS 0 /100 WBC 0-0 (BEAKER) (test code = 413) NEUTROPHILS RELATIVE PERCENT 83 % (BEAKER) (test code = 429) LYMPHOCYTES RELATIVE PERCENT 9 % (BEAKER) (test code = 430) MONOCYTES RELATIVE PERCENT 6 % (BEAKER) (test code = 431) EOSINOPHILS RELATIVE PERCENT 1 % (BEAKER) (test code = 432) BASOPHILS RELATIVE PERCENT 1 % (BEAKER) (test code = 437) NEUTROPHILS ABSOLUTE COUNT 8.85 K/ L 1.78-5.38 H (BEAKER) (test code = 670) LYMPHOCYTES ABSOLUTE COUNT 0.94 K/ L 1.32-3.57 L (BEAKER) (test code = 414) MONOCYTES ABSOLUTE COUNT (BEAKER) 0.67 K/ L 0.30-0.82 (test code = 415) EOSINOPHILS ABSOLUTE COUNT 0.06 K/ L 0.04-0.54 (BEAKER) (test code = 416) BASOPHILS ABSOLUTE COUNT (BEAKER) 0.05 K/ L 0.01-0.08 (test code = 417) IMMATURE GRANULOCYTES-RELATIVE 1 % 0-1 PERCENT (BEAKER) (test code = 2801) CT, [id number] 02:12:00Reason for exam:->EMESISWhat is the patient's sedation requirement?->No SedationFINAL REPORT CT, ABDOMEN \\T\\ PELVIS, WITH IV CONTRAST CLINICAL HISTORY: EMESIS5 days s/p Whipple surgery with vomiting TECHNIQUE: Multiple axial images of the abdomen and pelvis were performed after the uncomplicated administration of IV contrast. Coronal and sagittal reformats obtained. Oral contrast was not administered. This exam was performed according to our departmental dose-optimization program, which includes automated exposure control, adjustment of the mA and/or kV according to patient size and/or use of the iterative reconstruction technique. COMPARISON: September 12, 2012 FINDINGS:LOWER CHEST: Basilar subsegmental atelectasis. LIVER: No acute findings.BILIARY SYSTEM: No abnormal ductal dilatation. Gallbladder is absent.PANCREAS: Atrophic with mild ductal dilatation. Fluid and or inflammatory changes surrounding the pancreatic head. SPLEEN: No acute findings.ADRENAL GLANDS: Unremarkable.KIDNEYS URETERS: No acute findings. GASTROINTESTINAL/MESENTERY: Status post Whipple bypass. There is fluid and inflammatory changes surrounding the blind end. Distal small bowel is dilated with fluid with narrowed terminal ileum but a focal zone of transition is not clearly identified. No evidence of acute appendicitis. Large bowel is nondistended. URINARY BLADDER: No acute findings.REPRODUCTIVE ORGANS: No acute findings. PERITONEUM/RETROPERITONEUM: Pneumoperitoneum, interloopfluid and small volume ascites.VESSELS: No acute findings. LYMPH NODES: No abdominal or pelvic lymphadenopathy.SOFT TISSUES: Subcutaneous gaseous and postoperative changes within the anterior abdomen.BONES: No suspicious osseous lesion. Other: None IMPRESSION:Status post Whipple with small bowel ileus versus distal partial small bowel obstruction. Fluid and inflammatory changes within the right upper quadrant surrounded the pancreatic head and blind limb possibly postoperative in origin but indistinguishable from enteritis/pancreatitis. Postoperative pneumoperitoneum and ascites. Signed: Aj Farley MDReport Verified Date/Time: 05/19/2019 02:12:28 URINALYSIS W/ [id number] 02:03:00 Test Item Value Reference Range Interpretation Comments COLOR (BEAKER) (test code = Dark Yellow 470) CLARITY (BEAKER) (test code = Slightly Hazy 469) SPECIFIC GRAVITY UA (BEAKER) 1.010 1.001-1.035 (test code = 468) PH UA (BEAKER) (test code = 6.0 5.0-8.0 467) PROTEIN UA (BEAKER) (test code Trace Negative A = 464) GLUCOSE UA (BEAKER) (test code Negative Negative = 365) KETONES UA (BEAKER) (test code >=160 mg/dL Negative A = 371) BILIRUBIN UA (BEAKER) (test Positive Negative A code = 462) BLOOD UA (BEAKER) (test code = Negative Negative 461) NITRITE UA (BEAKER) (test code Negative Negative = 465) LEUKOCYTE ESTERASE UA (BEAKER) Negative Negative (test code = 466) UROBILINOGEN UA (BEAKER) (test 1.0 mg/dL 0.2-1.0 code = 463) BACTERIA (BEAKER) (test code = Occasional 517) MUCUS (BEAKER) (test code = Occasional 1574) RBC UA-MANUAL (BEAKER) (test <5 /HPF code = 1659) WBC UA-MANUAL (BEAKER) (test <5 /HPF code = 1661) SQUAMOUS EPITHELIAL MANUAL <5 /HPF (BEAKER) (test code = 1663) SOURCE(BEAKER) (test code = 2795) [id number] 23:11:00 Test Item Value Reference Range Interpretation Comments LIPASE (BEAKER) (test code = 749) < U/L 40-240 L RAPID TROPONIN [id number] 22:55:00 Test Item Value Reference Range Interpretation Comments RAPID TROPONIN I (BEAKER) (test code < ng/mL <0.05 = 1483) BASIC METABOLIC [id number] 22:54:00 Test Item Value Reference Range Interpretation Comments SODIUM (BEAKER) 134 meq/L 135-148 L (test code = 381) POTASSIUM (BEAKER) 3.9 meq/L 3.6-5.5 (test code = 379) CHLORIDE (BEAKER) 98 meq/L 98-106 (test code = 382) CO2 (BEAKER) (test 26 meq/L 24-32 code = 355) BLOOD UREA NITROGEN 15 mg/dL 10-26 (BEAKER) (test code = 354) CREATININE (BEAKER) 0.84 mg/dL 0.50-1.20 (test code = 358) GLUCOSE RANDOM 166 mg/dL 70-110 H (BEAKER) (test code = 652) CALCIUM (BEAKER) 9.6 mg/dL 8.5-10.5 (test code = 697) EGFR (BEAKER) (test 96 mL/min/1.73 ESTIMA GLENNY GFR IS code = 1092) sq m NOT ACCURATE CREATININE CLEARANCE IN PREDICTING GLOMERULAR FILTRATION RATE . ESTIMATED GFR I S NOT APPLICABLE FOR DIALYSIS PATIEN TS. HEPATIC FUNCTION [id number] 22:54:00 Test Item Value Reference Range Interpretation Comments TOTAL PROTEIN (BEAKER) (test code = 7.3 gm/dL 6.0-8.5 770) ALBUMIN (BEAKER) (test code = 1145) 4.2 g/dL 3.5-5.0 BILIRUBIN TOTAL (BEAKER) (test code 2.3 mg/dL 0.1-1.2 H = 377) BILIRUBIN DIRECT (BEAKER) (test 0.0 mg/dL 0.0-0.4 code = 706) ALKALINE PHOSPHATASE (BEAKER) (test 140 U/L 30-115 H code = 346) AST (SGOT) (BEAKER) (test code = 212 U/L 5-40 H 353) ALT (SGPT) (BEAKER) (test code = 234 U/L 5-50 H 347) CBC W/PLT COUNT & AUTO [id number] 22:33:00 Test Item Value Reference Range Interpretation Comments WHITE BLOOD CELL COUNT (BEAKER) 14.2 K/ L 4.0-10.0 H (test code = 775) RED BLOOD CELL COUNT (BEAKER) 5.40 M/ L 4.20-5.80 (test code = 761) HEMOGLOBIN (BEAKER) (test code = 15.2 GM/DL 13.0-16.8 410) HEMATOCRIT (BEAKER) (test code = 45.4 % 40.0-50.0 411) MEAN CORPUSCULAR VOLUME (BEAKER) 84.0 fL 82.0-98.0 (test code = 753) MEAN CORPUSCULAR HEMOGLOBIN 28.2 pg 27.0-33.0 (BEAKER) (test code = 751) MEAN CORPUSCULAR HEMOGLOBIN CONC 33.6 GM/DL 32.0-36.0 (BEAKER) (test code = 752) RED CELL DISTRIBUTION WIDTH 12.8 % 10.3-14.2 (BEAKER) (test code = 412) PLATELET COUNT (BEAKER) (test 283 K/CU MM 150-430 code = 756) MEAN PLATELET VOLUME (BEAKER) 7.9 fL 6.5-10.5 (test code = 754) NEUTROPHILS RELATIVE PERCENT 88 % (BEAKER) (test code = 429) LYMPHOCYTES RELATIVE PERCENT 6 % (BEAKER) (test code = 430) MONOCYTES RELATIVE PERCENT 5 % (BEAKER) (test code = 431) EOSINOPHILS RELATIVE PERCENT 1 % (BEAKER) (test code = 432) BASOPHILS RELATIVE PERCENT 1 % (BEAKER) (test code = 437) NEUTROPHILS ABSOLUTE COUNT 12.42 K/ L 1.80-8.00 H (BEAKER) (test code = 670) LYMPHOCYTES ABSOLUTE COUNT 0.86 K/ L 1.48-4.50 L (BEAKER) (test code = 414) MONOCYTES ABSOLUTE COUNT (BEAKER) 0.67 K/ L 0.00-1.30 (test code = 415) EOSINOPHILS ABSOLUTE COUNT 0.16 K/ L 0.00-0.50 (BEAKER) (test code = 416) BASOPHILS ABSOLUTE COUNT (BEAKER) 0.07 K/ L 0.00-0.20 (test code = 417) TISSUE [id number] 18:21:00Surgical Pathology Report Case: [id number] Authorizing Provider: Satnam Rodriguez MD Collected: 05/13/2019 1011 Ordering Location: [facility] Received: 05/13/2019 1151 SERVICES Pathologist: Maryana Hanna MD Specimens: A) - Lymph Node, HEPATIC ARTERY LYMPH NODE B) -Gallbladder C) - Shea creas & Duodenum, WHIPPLE SPECIMEN D) - Duct, ADDITIONAL BILE DUCT MARGIN A. LYMPH NODE, HEPATICARTERY, EXCISION: - ONE BENIGN LYMPH NODE (0/1). B. GALLBLADDER, CHOLECYSTECTOMY: - MILD CHRONIC CHOLECYSTITIS. - NEGATIVE CYSTIC DUCT MARGIN.C. PANCREAS AND DUODENUM, WHIPPLE PROCEDURE:- WELL DIFFERENTIATED NEUROENDOCRINE TUMOR, GRADE 1 - MITOSIS LESS THAN 2 PER 20 hpf. - PROLIFERATION INDEX:2.0% (assessed by Ki-67)- TUMOR SIZE: 1.7 CM- NEGATIVE FOR LYMPHOVASCULAR INVASION- NEGATIVE FOR PERINEURAL INVASION- ALL MARGINS, NEGATIVE FOR TUMOR CLOSEST MARGIN: PANCREATIC NECK (CLEARANCE 0.8 CM)- TWENTY SEVEN BENIGN LYMPH NODES (0/27)- BACKGROUND MILD TO MODERATE CHRONIC PANCREATITIS.- AJCC PATHOLOGIC STAGE (8th EDITION): pT1N0D. BILE DUCT, ADDITIONAL MARGIN, EXCISION: - NEGATIVE FOR TUMOR. Signing Pathologist Direct Phone Line: [phone] signed by Maryana Hanna MD on 05/18/2019 at 6:21 PMTumor cells are staining positive for synaptophysin and CD 56, and negative for CK 7, CDX2. The Ki 67 stain 2% of the tumor cells. PANCREAS NEUROENDOCRINE TUMOR (Pancreas Endo - All Specimens)CLINICAL Clinical History: Not specified Functional Type: Pancreatic neuroendocrine tumor, functional status unknown SPECIMEN Procedure: Pancreaticoduodenectomy (Whipple resection), partial pancreatectomy TUMOR Tumor Site: Pancreatic head Histologic Type and Grade: G1: Well- differentiated neuroendocrine tumor : Mitotic Rate: < 2 mitoses / 2 mm2 : Ki-67 Labeling Index: < 3% Tumor Size: Greatest dimension in Centimeters (cm): 1.7 Centimeters (cm) Additional Dimension in Centimeters (cm): 1.2 Centimeters (cm) Additional Dimension in Centimeters (cm): 1 Centimeters (cm) Tumor Focality: Unifocal Tumor Extent: Tumor Extension: Tumor is limited to the pancreas Accessory Findings: Lymphovascular Invasion: Not identified Perineural Invasion: Not identified Tumor Necrosis: Not identified MARGINS Margins: All margins are uninvolved by tumor Margins Examined: Pancreatic neck/ parenchymal Margins Examined: Uncinate (retroperitoneal / superior mesenteric artery) Margins Examined: Bile duct Margins Examined: Proximal (gastric or duodenal) Margins Examined: Distal (distal duodenal or jejunal) Distance of Tumor from Closest Margin: 0.8 Centimeters (cm) Closest Margin: Pancreatic neck / parenchymal LYMPH NODES Number of Lymph Nodes Involved: 0 Number of Lymph Nodes Examined: 28 PATHOLOGIC STAGE CLASSIFICATION (pTNM, AJCC 8th Edition)Primary Tumor (pT): pT1 Regional Lymph Nodes (pN): pN0 ADDITIONAL FINDINGS Additional Pathologic Findings: Atrophy 73337 x 1, 12749 x 2, 99033 x 1, 48523 x 1, 62913 x 4. 15631; 21698Lymeslfixl neoplasm Pancreatic cystA. The specimen is received in formalin labeled "lymph node, hepatic artery" is a 1.5 x 1.5 x 0.5 cm mora-pink lymph node. The lymph node is bisected to reveal mora-pink homogeneous soft tissue with focal areas of hemorrhage. The specimen is bisected and submitted entirely in cassette A1-A2. B. The specimen is received in formalin labeled "gallbladder" and consists of an 11 x 4 x 2.5 cm gallbladder with attached cystic duct measuring 0.7 cm in length and 0.3 cm in diameter. An attached soft tissue measuring 3 x 1.5 x 0.5 cm. The serosa is blake smooth and glistening. On opening, the gallbladder is filled by yellow- green bile. There is no stone or calculus identified grossly. There is no stone lodged in the cystic duct. The mucosa is yellow-green. There are no masses or lesions identified grossly. The wall thickness is up to 0.1 cm. The gallbladder is serially sectioned and healthcare representative sections are submitted in cassette B1- B2 to include the cystic duct margin intact in cassette B1.Comment: The wall is very thin. The section is made as a roll?? and healthcare representative section submitted in cassette B1 and B2. [place]/[facility]. The specimen is received fresh labeled "pancreas and duodenum" is the product of a Whipple procedure, including head of pancreas measuring 7 x 6 x 4 cm (duodenum measuring 55 cm in length and 1.5 cm in diameter) and common bile duct measuring 2 cm in length and 0.5 cm in diameter. Both ends of the duodenum is stapled, proximal duodenal margin measuring 4.0 cm, and the distal duodenal margin measuring 3 cm. There is a blue stitch designating the bile duct, a black stitch designating the superior mesenteric artery and short black stitch designating the pancreatic neck. The common bile duct is probed and is patent. The pancreatic duct cannot be identifiedgrossly. The ampulla of Vater is identified and probed and is patent to the common bile duct. The pancreas is bivalved to show a 1.7 x 1.2 X 1.0 cm, mora-yellow, well-circumscribed mass located at the head of the pancreas. The mass is 0.8 cm from the pancreatic neck margin, 2.5 cm from the common bile duct margin, 2.5 cm from the proximal duodenal margin, and 23 cm from the distal duodenal margin. Themass is serially sectioned to reveal mora-yellow well- circumscribed, sclerosing lesion which is located at the head of the pancreas and uninvolving any of the common bile duct or the pancreatic duct. The remaining of the duodenal mucosa is unremarkable. Ink code: Blue-anterior pancreas, black-pancreatic neck margin, posterior pancreas, orange-vascular groove, green-uncinate margin. ?/ewSection code: FSC1, pancreatic neck margin en face; FSC2, common bile duct margin en face; FSC3, healthcare representative section from the tumor; C4, additional section from the pancreatic neck adjacent to the pancreatic neck margin; C5, additional sections from common bile duct adjacent to the true common bile duct margin; C6, proximal duodenal margin;en face C7, distal duodenal margin en face; C8-C19, uncinate margin submitted entirely from anterior to posterior, perpendicular section. C20-C23, the pancreatic head mass entirely submitted from anterior to posterior; C24, ampulla with common bile duct and pancreas; C24, healthcare representative section from the anterior pancreas; C26, healthcare representative section from the posterior pancreas; C27, one lymph node; C28, four possible lymph nodes; C29, two possible lymph nodes; C30-C32, repr esentative sections from the fat; C33, healthcare representative section from the proximal duodenum; C34, healthcare representative section from the distal duodenum. WA/plD. The specimen is received in formalin labeled "duct" and consists of 1 cm in length and 0.3 cm in diameter mora-pink opened and unoriented duct. The duct is grossly unremarkable. The specimen is serially sectioned and submitted entirely in cassette D1. WA/plPANCREATIC MARGIN: - FREE OF TUMOR (THE TUMOR IS 8 MM AWAY FROM THE PANCREATIC NECK MARGIN)- BILE DUCT FREE OF TUMOR (2 CM FROM THE TUMOR) - SCLEROSIS NEUROENDOCRINE NEOPLASM IN THE HEAD OF THE PANCREAS, 1.7 CM (C1, C2, C3, RESPECTIVELY)Reported by Dr. Hanna on May 13, 2019, at12:58 p.m. Performed.The interpretation of this case included the use of immunohistochemistry or special stains.Control Slides Examined: In-house known positive controls were evaluated along with the test tissue. These control slides run alongside of the patients sample show appropriate staining. Internal positive and negative controls when available are evaluated Immunohistochemistry technical testing was performed at [facility], Pathology Laboratory where it was developed and its performance characteristics were determined. It has not been cleared or approved by the U.S. Food and Drug Administration. The FDA has determined that such clearance or approval is not necessary.The test is used for clinical purposes. It should not be regarded as investigational or for research. This laboratory is certified under the Clinical Laboratory Improvement Amendments of 1988 (CLIA-88)as qualified to perform high complexity clinical laboratory testing.[facility], Department of Pathology, [address] [place], [place] [id number], [facility], [facility] of [facility], [address] [place] [id number], [facility], Department of [facility], [address] [place] [address], Tel HNAEROBIC [id number] 18:48:00 Test Item Value Reference Range Interpretation Comments CULTURE (BEAKER) (test No anaerobes isolated code = 1095) POCT-GLUCOSE [id number] 08:01:00 Test Item Value Reference Range Interpretation Comments POC-GLUCOSE METER 121 mg/dL 70-[address] [facility] 6720 (BEAKER) (test code = JOSE CARLOS [place] 1538) [address] AMYLASE, BODY [id number] 06:54:00 Test Item Value Reference Range Interpretation Comments AMYLASE FLUID (BEAKER) (test code = 57 U/L 350) Absence of reference range indicates that normals have not been defined.Assay performance has not been validated for this type of specimen.BASIC METABOLIC [id number] 06:54:00 Test Item Value Reference Range Interpretation Comments SODIUM (BEAKER) 135 meq/L 136-145 L (test code = 381) POTASSIUM (BEAKER) 4.0 meq/L 3.5-5.1 (test code = 379) CHLORIDE (BEAKER) 100 meq/L 98-107 (test code = 382) CO2 (BEAKER) (test 29 meq/L 22-29 code = 355) BLOOD UREA NITROGEN 11 mg/dL 7-21 (BEAKER) (test code = 354) CREATININE (BEAKER) 0.80 mg/dL 0.57-1.25 (test code = 358) GLUCOSE RANDOM 117 mg/dL 70-105 H (BEAKER) (test code = 652) CALCIUM (BEAKER) 8.4 mg/dL 8.4-10.2 (test code = 697) EGFR (BEAKER) (test 102 mL/min/1.73 ESTIM ATED GFR IS code = 1092) sq m NOT ACCURATE CREATININE CLEARANCE IN PREDICTING GLOMERULAR FILTRATION RATE . ESTIMATED GFR I S NOT APPLICABLE FOR DIALYSIS PATIEN TS. Specimen slightly ictericCBC W/PLT COUNT & AUTO [id number] 06:17:00 Test Item Value Reference Range Interpretation Comments WHITE BLOOD CELL COUNT (BEAKER) 9.9 K/ L 3.5-10.5 (test code = 775) RED BLOOD CELL COUNT (BEAKER) 4.18 M/ L 4.63-6.08 L (test code = 761) HEMOGLOBIN (BEAKER) (test code = 12.1 GM/DL 13.7-17.5 L 410) HEMATOCRIT (BEAKER) (test code = 35.5 % 40.1-51.0 L 411) MEAN CORPUSCULAR VOLUME (BEAKER) 84.9 fL 79.0-92.2 (test code = 753) MEAN CORPUSCULAR HEMOGLOBIN 28.9 pg 25.7-32.2 (BEAKER) (test code = 751) MEAN CORPUSCULAR HEMOGLOBIN CONC 34.1 GM/DL 32.3-36.5 (BEAKER) (test code = 752) RED CELL DISTRIBUTION WIDTH 11.9 % 11.6-14.4 (BEAKER) (test code = 412) PLATELET COUNT (BEAKER) (test 141 K/CU MM 150-450 L code = 756) MEAN PLATELET VOLUME (BEAKER) 10.7 fL 9.4-12.4 (test code = 754) NUCLEATED RED BLOOD CELLS 0 /100 WBC 0-0 (BEAKER) (test code = 413) NEUTROPHILS RELATIVE PERCENT 80 % (BEAKER) (test code = 429) LYMPHOCYTES RELATIVE PERCENT 10 % (BEAKER) (test code = 430) MONOCYTES RELATIVE PERCENT 8 % (BEAKER) (test code = 431) EOSINOPHILS RELATIVE PERCENT 2 % (BEAKER) (test code = 432) BASOPHILS RELATIVE PERCENT 0 % (BEAKER) (test code = 437) NEUTROPHILS ABSOLUTE COUNT 7.91 K/ L 1.78-5.38 H (BEAKER) (test code = 670) LYMPHOCYTES ABSOLUTE COUNT 0.97 K/ L 1.32-3.57 L (BEAKER) (test code = 414) MONOCYTES ABSOLUTE COUNT (BEAKER) 0.81 K/ L 0.30-0.82 (test code = 415) EOSINOPHILS ABSOLUTE COUNT 0.18 K/ L 0.04-0.54 (BEAKER) (test code = 416) BASOPHILS ABSOLUTE COUNT (BEAKER) 0.03 K/ L 0.01-0.08 (test code = 417) IMMATURE GRANULOCYTES-RELATIVE 0 % 0-1 PERCENT (BEAKER) (test code = 4001) POCT-GLUCOSE [id number] 20:58:00 Test Item Value Reference Range Interpretation Comments POC-GLUCOSE METER 103 mg/dL 70-[address] [facility] 6720 (BEAKER) (test code = JOSE CARLOS [place] 1538) [address] POCT-GLUCOSE [id number] 17:01:00 Test Item Value Reference Range Interpretation Comments POC-GLUCOSE METER 131 mg/dL 70-[address] [facility] 6720 [facility] (test code = JOSE CARLOS Rodrigues [place] 1538) [address] SURGICALLY OBTAINED CULTURE + GRAM [id number] 14:16:00 Test Item Value Reference Range Interpretation Comments CULTURE (BANNER) (test code No growth = 1095) GRAM STAIN RESULT (BANNER) <1+ WBCs (test code = 1123) GRAM STAIN RESULT (BANNER) No organisms seen (test code = 48705) POCT-GLUCOSE [id number] 11:38:00 Test Item Value Reference Range Interpretation Comments POC-GLUCOSE METER 109 mg/dL 70-110 TESTED AT [place] [address] (BANNER) (test code = JE[place]ILTON [place] 1538) [address] POCT-GLUCOSE [id number] 08:49:00 Test Item Value Reference Range Interpretation Comments POC-GLUCOSE METER 118 mg/dL 70-110 H TESTED AT [place] [address] (BANNER) (test code = [place] 1538) [address] POCT-GLUCOSE [id number] 22:18:00 Test Item Value Reference Range Interpretation Comments POC-GLUCOSE METER 139 mg/dL 70-110 H TESTED AT [place] [address] ([facility] (test code = [place] 1538) [address] POCT-GLUCOSE [id number] 17:39:00 Test Item Value Reference Range Interpretation Comments POC-GLUCOSE METER 140 mg/dL 70-110 H TESTED AT [place] [address] ([facility] (test code = [place] 1538) [address] POCT-GLUCOSE [id number] 12:29:00 Test Item Value Reference Range Interpretation Comments POC-GLUCOSE METER 134 mg/dL 70-110 H TESTED AT [place] [address] ([facility] (test code = JEANETHMILTON Rodrigues [place] 1538) [address] POCT-GLUCOSE [id number] 06:13:00 Test Item Value Reference Range Interpretation Comments POC-GLUCOSE METER 158 mg/dL 70-110 H TESTED AT [place] [address] ([facility] (test code = [place] 1538) [address] BASIC METABOLIC [id number] 06:06:00 Test Item Value Reference Range Interpretation Comments SODIUM ([facility] 137 meq/L 136-145 (test code = 381) POTASSIUM (BEAKER) 4.2 meq/L 3.5-5.1 (test code = 379) CHLORIDE (BEAKER) 105 meq/L 98-107 (test code = 382) CO2 (BEAKER) (test 24 meq/L 22-29 code = 355) BLOOD UREA NITROGEN 15 mg/dL 7-21 (BEAKER) (test code = 354) CREATININE (BEAKER) 0.98 mg/dL 0.57-1.25 (test code = 358) GLUCOSE RANDOM 176 mg/dL 70-105 H (BEAKER) (test code = 652) CALCIUM (BEAKER) 8.5 mg/dL 8.4-10.2 (test code = 697) EGFR (BEAKER) (test 80 mL/min/1.73 ESTIMA GLENNY GFR IS code = 1092) sq m NOT ACCURATE CREATININE CLEARANCE IN PREDICTING GLOMERULAR FILTRATION RATE . ESTIMATED GFR I S NOT APPLICABLE FOR DIALYSIS PATIEN TS. Specimen slightly ictericCBC (HEMOGRAM ONLY)2019-05-14 05:15:00 Test Item Value Reference Range Interpretation Comments WHITE BLOOD CELL COUNT (BEAKER) 15.7 K/ L 3.5-10.5 H (test code = 775) RED BLOOD CELL COUNT (BEAKER) 4.89 M/ L 4.63-6.08 (test code = 761) HEMOGLOBIN (BEAKER) (test code = 14.2 GM/DL 13.7-17.5 410) HEMATOCRIT (BEAKER) (test code = 41.9 % 40.1-51.0 411) MEAN CORPUSCULAR VOLUME (BEAKER) 85.7 fL 79.0-92.2 (test code = 753) MEAN CORPUSCULAR HEMOGLOBIN 29.0 pg 25.7-32.2 (BEAKER) (test code = 751) MEAN CORPUSCULAR HEMOGLOBIN CONC 33.9 GM/DL 32.3-36.5 (BEAKER) (test code = 752) RED CELL DISTRIBUTION WIDTH 12.3 % 11.6-14.4 (BEAKER) (test code = 412) PLATELET COUNT (BEAKER) (test 183 K/CU MM 150-450 code = 756) MEAN PLATELET VOLUME (BEAKER) 10.9 fL 9.4-12.4 (test code = 754) NUCLEATED RED BLOOD CELLS 0 /100 WBC 0-0 (BEAKER) (test code = 413) AMYLASE, BODY [id number] 05:15:00 Test Item Value Reference Range Interpretation Comments AMYLASE FLUID (BEAKER) (test code = 206 U/L 350) Absence of reference range indicates that normals have not been defined.Assay performance has not been validated for this type of specimen.POCT-GLUCOSE METER 2019-05-13 23:56:00 Test Item Value Reference Range Interpretation Comments POC-GLUCOSE METER 190 mg/dL 70-[address] [facility] 6720 (BANNER) (test code = JOSE CARLOS Rodrigues [facility] 1538) [address] PLATELET AGGREGATION: FUNCTION [id number] 10:30:00 Test Item Value Reference Range Interpretation Comments WEAK ADP 45 % 60-91 L RESULT(BEAKER) (test code = 2135) PLATELET FUNCTION 40-49% indicates SCREEN INTERP moderate platelet (BEAKER) (test code = dysfunction 2173) [id number] Geronimo Colon MD (BANNER) (test code = (electronic signature) 0257) PLATELET COUNT AGG 157 K/CU MM 150-450 (BEAKER) (test code = 2656) Platelet Function Screen results may be falsely low with platelet counts<100,000/cu mm.HEMOGLOBIN [id number] 11:47:00 Test Item Value Reference Range Interpretation Comments HEMOGLOBIN A1C (BEAKER) (test code = 5.3 % 4.3-6.1 368) LIPID [id number] 06:29:00 Test Item Value Reference Range Interpretation Comments TRIGLYCERIDES (BEAKER) (test code = 252 mg/dL 540) CHOLESTEROL (BEAKER) (test code = 196 mg/dL 631) HDL CHOLESTEROL (BEAKER) (test code 35 mg/dL = 976) LDL CHOLESTEROL CALCULATED (AKER) 111 mg/dL (test code = 633) Triglyceride Reference Range: Low Risk <150 Borderline 150-199 High Risk 200-499 Very High Risk >=500Cholesterol Reference Range: Low Risk <200 Borderline 200-239 High Risk >240HDL Cholesterol Reference Range: Low Risk >=60 High Risk <40LDL Cholesterol Reference Range: Optimal <100 Near Optimal 100-129 Borderline 130-159 High 160-189 Very High >=190TROPONIN [id number] 17:21:00 Test Item Value Reference Range Interpretation Comments TROPONIN I (BEAKER) (test code = 1.63 ng/mL 0.00-0.03 397) Troponin I (TnI) levels must be interpreted in the context of the presenting symptoms and the clinical findings. Elevated TnI levels indicate myocardial damage, but are not specific for ischemic heart disease. Elevated TnI levels are seen in patients with other cardiac conditions (including myocarditis and congestive heart failure), and slight TnI elevations occur in patients with other conditions, including sepsis, renal failure, acidosis, acute neurological disease, and persistent tachyarrhythmia.CREATINE KINASE (CK), TOTAL AND MB 2017-08-25 17:18:00 Test Item Value Reference Range Interpretation Comments CREATINE KINASE TOTAL (BEAKER) 133 U/L 29-200 (test code = 380) CREATINE KINASE-MB (BEAKER) (test 7.5 ng/mL 0.0-6.6 H code = 750) CREATINE KINASE-MB INDEX (BEAKER) 5.6 % (test code = 395) CK-MB Reference Range:<6.7 Normal6.7-10.0 Borderline>10.0 AbnormalTROPONIN [id number] 11:21:00 Test Item Value Reference Range Interpretation Comments TROPONIN I (BEAKER) (test code = 2.33 ng/mL 0.00-0.03 397) Troponin I (TnI) levels must be interpreted in the context of the presenting symptoms and the clinical findings. Elevated TnI levels indicate myocardial damage, but are not specific for ischemic heart disease. Elevated TnI levels are seen in patients with other cardiac conditions (including myocarditis and congestive heart failure), and slight TnI elevations occur in patients with other conditions, including sepsis, renal failure, acidosis, acute neurological disease, and persistent tachyarrhythmia.CREATINE KINASE (CK), TOTAL AND MB 2017-08-25 10:59:00 Test Item Value Reference Range Interpretation Comments CREATINE KINASE TOTAL (BEAKER) 178 U/L 29-200 (test code = 380) CREATINE KINASE-MB (BEAKER) (test 12.0 ng/mL 0.0-6.6 H code = 750) CREATINE KINASE-MB INDEX (BEAKER) 6.7 % (test code = 395) CK-MB Reference Range:<6.7 Normal6.7-10.0 Borderline>10.0 AbnormalTROPONIN [id number] 05:53:00 Test Item Value Reference Range Interpretation Comments TROPONIN I (BEAKER) (test code = 3.55 ng/mL 0.00-0.03 HH 397) Troponin I (TnI) levels must be interpreted in the context of the presenting symptoms and the clinical findings. Elevated TnI levels indicate myocardial damage, but are not specific for ischemic heart disease. Elevated TnI levels are seen in patients with other cardiac conditions (including myocarditis and congestive heart failure), and slight TnI elevations occur in patients with other conditions, including sepsis, renal failure, acidosis, acute neurological disease, and persistent tachyarrhythmia.CREATINE KINASE (CK), TOTAL AND MB 2017-08-25 05:27:00 Test Item Value Reference Range Interpretation Comments CREATINE KINASE TOTAL (BEAKER) 203 U/L 29-200 H (test code = 380) CREATINE KINASE-MB (BEAKER) (test 14.9 ng/mL 0.0-6.6 H code = 750) CREATINE KINASE-MB INDEX (BEAKER) 7.3 % (test code = 395) CK-MB Reference Range:<6.7 Normal6.7-10.0 Borderline>10.0 AbnormalURINALYSIS W/ [id number] 20:15:00 Test Item Value Reference Range Interpretation Comments COLOR (BEAKER) (test code Light Yellow = 470) CLARITY (BEAKER) (test Clear code = 469) SPECIFIC GRAVITY UA > 1.001-1.035 H (BEAKER) (test code = 468) PH UA (BEAKER) (test code 8.0 5.0-8.0 = 467) PROTEIN UA (BEAKER) (test Negative Negative code = 464) GLUCOSE UA (BEAKER) (test Negative Negative code = 365) KETONES UA (BEAKER) (test Negative Negative code = 371) BILIRUBIN UA (BEAKER) Negative Negative (test code = 462) BLOOD UA (BEAKER) (test Negative Negative code = 461) NITRITE UA (BEAKER) (test Negative Negative code = 465) LEUKOCYTE ESTERASE UA Negative Negative (BEAKER) (test code = 466) UROBILINOGEN UA (BEAKER) 0.2 mg/dL 0.2-1.0 (test code = 463) RBC UA (BEAKER) (test code < /HPF = 519) WBC UA (BEAKER) (test code < /HPF = 520) SOURCE(BEAKER) (test code Urine, Clean Catch = 2795) TROPONIN [id number] 20:03:00 Test Item Value Reference Range Interpretation Comments TROPONIN I (BEAKER) (test code = 1.28 ng/mL 0.00-0.03 HH 397) Troponin I (TnI) levels must be interpreted in the context of the presenting symptoms and the clinical findings. Elevated TnI levels indicate myocardial damage, but are not specific for ischemic heart disease. Elevated TnI levels are seen in patients with other cardiac conditions (including myocarditis and congestive heart failure), and slight TnI elevations occur in patients with other conditions, including sepsis, renal failure, acidosis, acute neurological disease, and persistent tachyarrhythmia.B-TYPE NATRIURETIC FACTOR (BNP) 2017-08-24 20:03:00 Test Item Value Reference Range Interpretation Comments B-TYPE NATRIURETIC PEPTIDE (BEAKER) 28 pg/mL 0-100 (test code = 700) CREATINE KINASE (CK), TOTAL AND [id number] 19:38:00 Test Item Value Reference Range Interpretation Comments CREATINE KINASE TOTAL (BEAKER) 123 U/L 29-200 (test code = 380) CREATINE KINASE-MB (BEAKER) (test 6.9 ng/mL 0.0-6.6 H code = 750) CREATINE KINASE-MB INDEX (BEAKER) 5.6 % (test code = 395) CK-MB Reference Range:<6.7 Normal6.7-10.0 Borderline>10.0 AbnormalCREATINE KINASE (CK), TOTAL AND [id number] 19:37:00 Test Item Value Reference Range Interpretation Comments CREATINE KINASE TOTAL (BEAKER) 123 U/L 29-200 (test code = 380) CREATINE KINASE-MB (BEAKER) (test 6.8 ng/mL 0.0-6.6 H code = 750) CREATINE KINASE-MB INDEX (BEAKER) 5.5 % (test code = 395) CK-MB Reference Range:<6.7 Normal6.7-10.0 Borderline>10.0 [id number] 19:32:00 Test Item Value Reference Range Interpretation Comments MAGNESIUM (BEAKER) (test code = 1.6 mg/dL 1.6-2.6 627) BASIC METABOLIC [id number] 19:32:00 Test Item Value Reference Range Interpretation Comments SODIUM (BEAKER) 138 meq/L 136-145 (test code = 381) POTASSIUM (BEAKER) 3.9 meq/L 3.5-5.1 (test code = 379) CHLORIDE (BEAKER) 106 meq/L 98-107 (test code = 382) CO2 (BEAKER) (test 22 meq/L 22-29 code = 355) BLOOD UREA NITROGEN 15 mg/dL 7-21 (BEAKER) (test code = 354) CREATININE (BEAKER) 0.83 mg/dL 0.57-1.25 (test code = 358) GLUCOSE RANDOM 106 mg/dL 70-105 H (BEAKER) (test code = 652) CALCIUM (BEAKER) 8.9 mg/dL 8.4-10.2 (test code = 697) EGFR (BEAKER) (test 98 mL/min/1.73 ESTIMA GLENNY GFR IS code = 1092) sq m NOT ACCURATE CREATININE CLEARANCE IN PREDICTING GLOMERULAR FILTRATION RATE . ESTIMATED GFR I S NOT APPLICABLE FOR DIALYSIS PATIEN TS. HEPATIC FUNCTION [id number] 19:32:00 Test Item Value Reference Range Interpretation Comments TOTAL PROTEIN (BEAKER) (test code = 6.6 gm/dL 6.0-8.3 770) ALBUMIN (BEAKER) (test code = 1145) 3.9 g/dL 3.5-5.0 BILIRUBIN TOTAL (BEAKER) (test code 1.5 mg/dL 0.2-1.2 H = 377) BILIRUBIN DIRECT (BEAKER) (test 0.4 mg/dL 0.1-0.5 code = 706) ALKALINE PHOSPHATASE (BEAKER) (test 63 U/L 40-150 code = 346) AST (SGOT) (BEAKER) (test code = 21 U/L 5-34 353) ALT (SGPT) (BEAKER) (test code = 21 U/L 6-55 347) CBC W/PLT COUNT & AUTO [id number] 19:16:00 Test Item Value Reference Range Interpretation Comments WHITE BLOOD CELL COUNT (BEAKER) 10.9 K/ L 3.5-10.5 H (test code = 775) RED BLOOD CELL COUNT (BEAKER) 4.69 M/ L 4.63-6.08 (test code = 761) HEMOGLOBIN (BEAKER) (test code = 13.1 GM/DL 13.7-17.5 L 410) HEMATOCRIT (BEAKER) (test code = 37.7 % 40.1-51.0 L 411) MEAN CORPUSCULAR VOLUME (BEAKER) 80.4 fL 79.0-92.2 (test code = 753) MEAN CORPUSCULAR HEMOGLOBIN 27.9 pg 25.7-32.2 (BEAKER) (test code = 751) MEAN CORPUSCULAR HEMOGLOBIN CONC 34.7 GM/DL 32.3-36.5 (BEAKER) (test code = 752) RED CELL DISTRIBUTION WIDTH 12.1 % 11.6-14.4 (BEAKER) (test code = 412) PLATELET COUNT (BEAKER) (test 175 K/CU MM 150-450 code = 756) MEAN PLATELET VOLUME (BEAKER) 10.9 fL 9.4-12.4 (test code = 754) NUCLEATED RED BLOOD CELLS 0 /100 WBC 0-0 (BEAKER) (test code = 413) NEUTROPHILS RELATIVE PERCENT 82 % (BEAKER) (test code = 429) LYMPHOCYTES RELATIVE PERCENT 11 % (BEAKER) (test code = 430) MONOCYTES RELATIVE PERCENT 5 % (BEAKER) (test code = 431) EOSINOPHILS RELATIVE PERCENT 1 % (BEAKER) (test code = 432) BASOPHILS RELATIVE PERCENT 1 % (BEAKER) (test code = 437) NEUTROPHILS ABSOLUTE COUNT 8.89 K/ L 1.78-5.38 H (BEAKER) (test code = 670) LYMPHOCYTES ABSOLUTE COUNT 1.25 K/ L 1.32-3.57 L (BEAKER) (test code = 414) MONOCYTES ABSOLUTE COUNT (BEAKER) 0.58 K/ L 0.30-0.82 (test code = 415) EOSINOPHILS ABSOLUTE COUNT 0.08 K/ L 0.04-0.54 (BEAKER) (test code = 416) BASOPHILS ABSOLUTE COUNT (BEAKER) 0.06 K/ L 0.01-0.08 (test code = 417) IMMATURE GRANULOCYTES-RELATIVE 1 % 0-1 PERCENT (BEAKER) (test code = 2801) [id number] 17:03:00 Test Item Value Reference Range Interpretation Comments ACTIVATED CLOTTING TIME 274 sec TEST ED AT [facility] ([facility]) (test code = 80845 [address]) [facility] X 13944 [id number] 16:53:00 Test Item Value Reference Range Interpretation Comments ACTIVATED CLOTTING TIME 422 sec TEST ED AT [facility]) (test code = 62654 [address] 441) [facility] X [address]64 [id number] 16:22:00 Test Item Value Reference Range Interpretation Comments ACTIVATED CLOTTING TIME 334 sec TEST ED AT [facility] (test code = 03212 [address]) [facility] X [address]89 [id number] 16:22:00 Test Item Value Reference Range Interpretation Comments ACTIVATED CLOTTING TIME 274 sec TEST ED AT [facility]) (test code = 41254 [address]) [facility] X [address]92 [id number] 16:22:00 Test Item Value Reference Range Interpretation Comments ACTIVATED CLOTTING TIME 257 sec TEST ED AT [facility]) (test code = 13050 [address]) [facility] X [address]8548 RAPID TROPONIN [id number] 15:25:00 Test Item Value Reference Range Interpretation Comments RAPID TROPONIN I ([facility]) (test code < ng/mL <0.05 = 1483) PROTHROMBIN [id number] 15:16:00 Test Item Value Reference Range Interpretation Comments PROTIME ([facility]) (test code = 10.8 seconds 9.8-12.0 759) INR ([facility]) (test code = 370) 1.0 <=5.9 RECOMMENDED COUMADIN/WARFARIN INR THERAPY RANGESSTANDARD DOSE: 2.0 - 3.0 Includes: PROPHYLAXIS forvenous thrombosis, systemic embolization; TREATMENT for venous thrombosis and/or pulmonary embolus.HIGH RISK: Target INR is 2.5-3.5 for patients with mechanical heart valves.[id number] 15:16:00 Test Item Value Reference Range Interpretation Comments PARTIAL THROMBOPLASTIN TIME 24.9 seconds 25.8-34.5 L (BEAKER) (test code = 760) BASIC METABOLIC [id number] 15:13:00 Test Item Value Reference Range Interpretation Comments SODIUM (BEAKER) 139 meq/L 135-148 (test code = 381) POTASSIUM (BEAKER) 3.4 meq/L 3.6-5.5 L (test code = 379) CHLORIDE (BEAKER) 102 meq/L 98-106 (test code = 382) CO2 (BEAKER) (test 24 meq/L 24-32 code = 355) BLOOD UREA NITROGEN 17 mg/dL 10-26 (BEAKER) (test code = 354) CREATININE (BEAKER) 1.08 mg/dL 0.50-1.20 (test code = 358) GLUCOSE RANDOM 113 mg/dL 70-110 H (BEAKER) (test code = 652) CALCIUM (BEAKER) 10.1 mg/dL 8.5-10.5 (test code = 697) EGFR (BEAKER) (test 72 mL/min/1.73 ESTIMA GLENNY GFR IS code = 1092) sq m NOT ACCURATE CREATININE CLEARANCE IN PREDICTING GLOMERULAR FILTRATION RATE . ESTIMATED GFR I S NOT APPLICABLE FOR DIALYSIS PATIEN TS. CBC W/PLT COUNT & AUTO [id number] 15:09:00 Test Item Value Reference Range Interpretation Comments WHITE BLOOD CELL COUNT (BEAKER) 9.0 10e3/ L 4.0-10.0 (test code = 775) RED BLOOD CELL COUNT (BEAKER) 5.44 10e6/ L 4.20-5.80 (test code = 761) HEMOGLOBIN (BEAKER) (test code = 15.6 g/dL 13.0-16.8 410) HEMATOCRIT (BEAKER) (test code = 45.9 % 40.0-50.0 411) MEAN CORPUSCULAR VOLUME (BEAKER) 84.3 fL 82.0-98.0 (test code = 753) MEAN CORPUSCULAR HEMOGLOBIN 28.8 pg 27.0-33.0 (BEAKER) (test code = 751) MEAN CORPUSCULAR HEMOGLOBIN CONC 34.1 g/dL 32.0-36.0 (BEAKER) (test code = 752) RED CELL DISTRIBUTION WIDTH 11.9 % 10.3-14.2 (BEAKER) (test code = 412) PLATELET COUNT (BEAKER) (test 218 10e3/ L 150-430 code = 756) MEAN PLATELET VOLUME (BEAKER) 8.1 fL 6.5-10.5 (test code = 754) NEUTROPHILS RELATIVE PERCENT 63 % (BEAKER) (test code = 429) LYMPHOCYTES RELATIVE PERCENT 27 % (BEAKER) (test code = 430) MONOCYTES RELATIVE PERCENT 8 % (BEAKER) (test code = 431) EOSINOPHILS RELATIVE PERCENT 2 % (BEAKER) (test code = 432) BASOPHILS RELATIVE PERCENT 1 % (BEAKER) (test code = 437) NEUTROPHILS ABSOLUTE COUNT 5.63 10e3/ L 1.80-8.00 (BEAKER) (test code = 670) LYMPHOCYTES ABSOLUTE COUNT 2.46 10e3/ L 1.48-4.50 (BEAKER) (test code = 414) MONOCYTES ABSOLUTE COUNT 0.69 10e3/ L 0.00-1.30 (BEAKER) (test code = 415) EOSINOPHILS ABSOLUTE COUNT 0.15 10e3/ L 0.00-0.50 (BEAKER) (test code = 416) BASOPHILS ABSOLUTE COUNT 0.07 10e3/ L 0.00-0.20 (BEAKER) (test code = 417)
--- NOTE | 2021-08-30 16:15 | RAD REPORT ---
EXAM DESCRIPTION: RAD - Chest Single View - 08/30/2021 4:03 pm CLINICAL HISTORY: PALPITATIONS COMPARISON: No comparisons FINDINGS: Lines: None. Lungs: No evidence of edema or pneumonia. Pleural: No significant pleural effusions or pneumothorax. Cardiac: The heart size is within normal limits. Bones: No acute fractures. Other: IMPRESSION: No acute cardiopulmonary disease.
[2021-08-30 16:52] LABS: Urine Blood Negative (Negative); Urine Glucose 2+ (Negative); Urine Protein Negative (Negative); Urine Specific Gravity <=1.005 (1.005-1.030)
[2021-08-30] MEDS ORDERED: LORazepam 2 MG/ML VIAL ONE ×2 (17:04→20:30)
[2021-08-30 17:07] LABS: Protime INR 0.97
[2021-08-30 17:59] LABS: Barbiturates NEGATIVE (NEGATIVE); Benzodiazepines NEGATIVE (NEGATIVE); Cocaine NEGATIVE (NEGATIVE); METHAMPHETAM NEGATIVE (NEGATIVE); Methadone NEGATIVE (NEGATIVE); Opiates NEGATIVE (NEGATIVE); Phencyclidine NEGATIVE (NEGATIVE); THC Cannibis NEGATIVE (NEGATIVE)
[2021-08-30 18:07] LABS: Albumin 4.3 g/dL (3.4-5.0); Bilirubin Direct 0.2 mg/dL (0-0.2); Bilirubin Total 0.9 mg/dL (0.2-1.0); Potassium 3.6 mmol/L (3.5-5.1); Protein, Total 7.6 g/dL (6.4-8.2)
--- NOTE | 2021-08-30 19:44 | ER ---
Nurse's Notes [facility] Name: Anthony Sanders Age: 56 yrs Sex: Male : 1965 Arrival Date: 08/30/2021 Time: 15:26 Bed 5 Private MD: Diagnosis: Syncope Near;Palpitations Presentation: 08/30 15:27 Chief complaint: Patient states: Pt states he feels his heart racing and it gets faster jh5 and slower; pt feels like he will pass out. Coronavirus screen: Vaccine status: Patient reports receiving the 2nd dose of the covid vaccine. Client denies travel out of the [place] in the last 14 days. At this time, the client does not indicate any symptoms associated with coronavirus-19. Ebola Screen: Patient negative for fever greater than or equal to 101.5 degrees Fahrenheit, and additional compatible Ebola Virus Disease symptoms Patient denies exposure to infectious person. Patient denies travel to an Ebola-affected area in the 21 days before illness onset. Initial Sepsis Screen: Does the patient meet any 2 criteria? No. Patient's initial sepsis screen is negative. Does the patient have a suspected source of infection? No. Patient's initial sepsis screen is negative. Risk Assessment: Do you want to hurt yourself or someone else? Patient reports no desire to harm self or others. Onset of symptoms was August 30, 2021. 15:27 Method Of Arrival: Ambulatory [facility] 15:27 Acuity: LADI 3 jh5 Triage Assessment: 15:30 General: Appears in no apparent distress. slender, well groomed, well developed, well [facility] nourished, Behavior is calm, cooperative, appropriate for age. Pain: Denies pain. Cardiovascular: Reports fatigue, lightheadedness, palpitations, Rhythm is irregular. Historical: - Allergies: 15:30 PENICILLINS; jh5 - PMHx: 15:30 Myocardial infarction; 5 - Immunization history:: Adult Immunizations up to date. - Social history:: Smoking status: Patient denies any tobacco usage or history of. Patient uses alcohol, occasionally. Screenin:00 Abuse screen: Denies threats or abuse. Denies injuries from another. Nutritional bp screening: No deficits noted. Tuberculosis screening: No symptoms or risk factors identified. Fall Risk None identified. Assessment: 16:00 General: SEE TRIAGE NOTE. bp 16:03 Pain: Pain does not radiate. Pain began suddenly, 1 hour ago. ab2 17:16 Reassessment: RESULTS PENDING FROM LAB. bp 20:36 Reassessment: No changes from previously documented assessment. Patient states he is ab2 feeling better. Dinner given to patient per request. 21:46 Reassessment: No changes from previously documented assessment. ab2 08/31 01:17 Reassessment: Patient appears in no apparent distress at this time. No changes from lg3 previously documented assessment. Patient and/or family updated on plan of care and expected duration. Pain level reassessed. Patient is alert, oriented x 3, equal unlabored respirations, skin warm/dry/pink. Patient denies pain at this time. Vital Signs: 08/30 15:27 BP 135 / 87; Pulse 130; Resp 18; Temp 98.7; Pulse Ox 100% ; Weight 77.11 kg; Height 5 jh5 ft. 11 in. (180.34 cm); Pain 0/10; 16:03 BP 130 / 87; Pulse 89; Resp 18; Pulse Ox 99% on R/A; Pain 0/10; ab2 17:00 BP 123 / 83; Pulse 82; Resp 16 S; Pulse Ox 100% on R/A; ab2 18:00 BP 116 / 83; Pulse 80; Resp 16; Pulse Ox 99% on R/A; ab2 19:00 BP 115 / 83; Pulse 83; Resp 16 S; Pulse Ox 99% on R/A; Pain 0/10; ab2 20:00 BP 114 / 77; Pulse 94; Resp 16; Pulse Ox 99% on R/A; Pain 0/10; ab2 21:00 BP 116 / 76; Pulse 77; Resp 16 S; Pulse Ox 98% on R/A; Pain 0/10; ab2 22:04 BP 116 / 76; Pulse 77; Resp 16; Pulse Ox 97% on R/A; Pain 0/10; lg3 23:35 BP 110 / 73; Pulse 86; Resp 17 S; Pulse Ox 98% on R/A; lg3 08/31 02:40 BP 114 / 82; Pulse 88; Resp 16 S; Pulse Ox 99% on R/A; Pain 0/10; lg3 08/30 15:27 Body Mass Index 23.71 (77.11 kg, 180.34 cm) [facility] ED Course: 08/30 15:26 Patient arrived in ED. am2 15:29 Triage completed. [facility] 15:30 Arm band placed on right wrist. [facility] 15:34 Howard Renae PA is PHCP. cp 15:34 Jamal Subramanian MD is Attending Physician. cp 15:59 Pepe Vergara, RN is Primary Nurse. bp 16:00 Patient has correct armband on for positive identification. Bed in low position. Call bp light in reach. Side rails up X2. vehicle monitor technician on. Pulse ox on. NIBP on. 16:02 XRAY Chest (1 view) In Process Unspecified. EDMS 16:03 No provider procedures requiring assistance completed. ab2 16:03 Patient maintains SpO2 saturation greater than 95% on room air. ab2 16:37 ETOH Level Sent. ab2 16:37 UDS Sent. ab2 16:37 T3 Free Sent. ab2 16:37 TSH Sent. ab2 16:38 Basic Metabolic Panel Sent. ab2 16:38 CBC with Diff Sent. ab2 16:38 LFT's Sent. ab2 16:38 NT PRO-BNP Sent. ab2 16:38 Magnesium Sent. ab2 16:38 PT-INR Sent. ab2 16:38 Troponin HS Sent. ab2 16:38 Inserted saline lock: 18 gauge in right antecubital area, using aseptic technique. ab2 Blood collected. 19:43 Bud Ramirez is Hospitalizing Provider. cp 22:58 COVID-19 SARS RT PCR (Document "Date of Onset" if Symptomatic) Sent. lg3 08/31 07:01 Primary Nurse role handed off by Pepe Vergara, DESMOND eb 08:07 Gianna Tinsley, DESMOND is Primary Nurse. jg9 09:00 Patient admitted, IV remains in place. jg9 Administered Medications: 08/30 17:05 Drug: Ativan (LORazepam) 0.5 mg Route: IVP; Site: right antecubital; ab2 17:16 Follow up: Response: No adverse reaction bp 20:31 Drug: Ativan (LORazepam) 0.5 mg Route: IVP; Site: right antecubital; lg3 20:32 Follow up: Response: No adverse reaction lg3 Outcome: 19:43 Decision to Hospitalize by Provider. cp 01/14 09:00 Admitted to ER Hold. Please see [facility] for further documentation. jg9 Condition: stable 11:30 Patient left the ED. eb Signatures: Dispatcher [employer] EDMS Howard Renae PA PA cp Moreno, Amanda am2 Pepe Vergara, RN RN Crystal Christian Lacie, RN RN lg3 Jazmine Solorio RN RN jh5 Gianna Tinsley RN RN jg9 Fred Lynn ab2 Corrections: (The following items were deleted from the chart) 08/30 15:31 15:30 Allergies: No Known Allergies; [place] [id number] 15:31 15:30 PSHx: Stented artery; [place] [address] 20:21 20:00 BP 240 / 106; Pulse 88bpm; Resp 16bpm; Pulse Ox 98% RA; Pain 0/10; ab2 ab2
--- NOTE | 2021-08-30 19:44 | EDPHYS ---
Physician Documentation [facility] Name: Anthony Sanders Age: 56 yrs Sex: Male : 1965 Arrival Date: 08/30/2021 Time: 15:26 Bed 5 Private MD: ED Physician Jamal Subramanian HPI: 08/30 15:50 This 56 yrs old Male presents to ER via Ambulatory with complaints of Irregular Pulse, cp heart racing. 15:50 The patient presents with a history of irregular heart beat, heart racing. cp 15:50 Context: The symptoms occur with light activity. Onset: The symptoms/episode cp began/occurred today. Duration: The patient or guardian reports multiple episodes, that are intermittent. Associated signs and symptoms: Pertinent positives: near-syncope, Pertinent negatives: chest pain, cough, fever, SOB, syncope, vomiting. Severity of symptoms: in the emergency department the symptoms have improved mildly. Historical: - Allergies: 15:30 PENICILLINS; 5 - PMHx: 15:30 Myocardial infarction; [facility] - Immunization history:: Adult Immunizations up to date. - Social history:: Smoking status: Patient denies any tobacco usage or history of. Patient uses alcohol, occasionally. ROS: 15:55 Constitutional: Negative for body aches, chills, fever, poor PO intake. cp 15:55 Eyes: Negative for injury, pain, redness, and discharge. cp 15:55 ENT: Negative for ear pain, sore throat, difficulty swallowing, difficulty handling secretions. 15:55 Cardiovascular: Positive for palpitations, Negative for chest pain, edema. 15:55 Respiratory: Positive for shortness of breath, on exertion. Negative for cough, wheezing. 15:55 Abdomen/GI: Negative for abdominal pain, nausea, vomiting, and diarrhea. 15:55 Back: Negative for pain at rest, pain with movement. 15:55 Neuro: Positive for near syncope, Negative for altered mental status, headache, syncope, weakness. 15:55 Psych: Positive for anxiety. 15:55 All other systems are negative. Exam: 15:45 ECG was reviewed by the Attending Physician. cp 16:00 Constitutional: The patient appears in no acute distress, alert, awake, cp non-diaphoretic, non-toxic, well developed, well nourished. 16:00 Head/Face: Normocephalic, atraumatic. cp 16:00 Eyes: Periorbital structures: appear normal, Pupils: equal, round, and reactive to light and accomodation, Extraocular movements: intact throughout, Conjunctiva: normal, no exudate, no injection, Sclera: no appreciated abnormality, Lids and lashes: appear normal, bilaterally. 16:00 ENT: External ear(s): are unremarkable, Nose: is normal, Mouth: Lips: moist, Oral mucosa: pink and intact, moist, Posterior pharynx: Airway: no evidence of obstruction, patent. 16:00 Neck: ROM/movement: is normal, is supple, without pain, no range of motions limitations, no nuchal rigidity. 16:00 Chest/axilla: Inspection: normal, Palpation: is normal, no crepitus, no tenderness. 16:00 Cardiovascular: Rate: normal, Rhythm: regular, Edema: is not appreciated, JVD: is not appreciated. 16:00 Respiratory: the patient does not display signs of respiratory distress, Respirations: normal, no use of accessory muscles, no retractions, labored breathing, is not present, Breath sounds: are clear throughout, no decreased breath sounds, no stridor, no wheezing. 16:00 Abdomen/GI: Inspection: abdomen appears normal, Bowel sounds: active, all quadrants, Palpation: abdomen is soft and non-tender, in all quadrants. 16:00 Back: pain, is absent, ROM is normal. 16:00 Neuro: Orientation: to person, place \\T\\ time. Mentation: is normal, Motor: moves all fours, strength is normal, Sensation: is normal, Gait: is steady, at a normal pace, without difficulty. Vital Signs: 15:27 BP 135 / 87; Pulse 130; Resp 18; Temp 98.7; Pulse Ox 100% ; Weight 77.11 kg; Height 5 jh5 ft. 11 in. (180.34 cm); Pain 0/10; 16:03 BP 130 / 87; Pulse 89; Resp 18; Pulse Ox 99% on R/A; Pain 0/10; ab2 17:00 BP 123 / 83; Pulse 82; Resp 16 S; Pulse Ox 100% on R/A; ab2 18:00 BP 116 / 83; Pulse 80; Resp 16; Pulse Ox 99% on R/A; ab2 19:00 BP 115 / 83; Pulse 83; Resp 16 S; Pulse Ox 99% on R/A; Pain 0/10; ab2 20:00 BP 114 / 77; Pulse 94; Resp 16; Pulse Ox 99% on R/A; Pain 0/10; ab2 21:00 BP 116 / 76; Pulse 77; Resp 16 S; Pulse Ox 98% on R/A; Pain 0/10; ab2 22:04 BP 116 / 76; Pulse 77; Resp 16; Pulse Ox 97% on R/A; Pain 0/10; lg3 23:35 BP 110 / 73; Pulse 86; Resp 17 S; Pulse Ox 98% on R/A; lg3 08/31 02:40 BP 114 / 82; Pulse 88; Resp 16 S; Pulse Ox 99% on R/A; Pain 0/10; lg3 08/30 15:27 Body Mass Index 23.71 (77.11 kg, 180.34 cm) jh5 MDM: 08/30 15:34 Patient medically screened. cp 16:00 Differential diagnosis: arrythmia, dehydration, stress disorder. cp 19:35 Data reviewed: vital signs, nurses notes, lab test result(s), EKG, radiologic studies, cp plain films. 19:35 Test interpretation: by ED physician or midlevel provider: ECG, plain radiologic cp studies. Counseling: I had a detailed discussion with the patient and/or guardian regarding: the historical points, exam findings, and any diagnostic results supporting the discharge/admit diagnosis, lab results, radiology results, the need for further work-up and treatment in the hospital. Physician consultation: Daniel ALMEIDA was called at 19:35, was contacted at 19:35, regarding admission, to the telemetry unit. patient's condition. 08/30 15:42 Order name: Basic Metabolic Panel cp 08/30 19:27 Interpretation: Normal except: GLUC 112; GFR 85. cp 08/30 15:42 Order name: CBC with Diff cp 08/30 15:42 Order name: LFT's cp 08/30 15:42 Order name: Magnesium cp 08/30 15:42 Order name: NT PRO-BNP cp 08/30 15:42 Order name: PT-INR; Complete Time: 17:18 cp 08/30 15:42 Order name: Troponin HS cp 08/30 19:28 Interpretation: Troponin HS 10.00; Reviewed. 08/30 15:42 Order name: TSH cp 08/30 15:42 Order name: T3 Free cp 08/30 15:42 Order name: UDS; Complete Time: 19:27 cp 08/30 15:54 Order name: ETOH Level; Complete Time: 17:59 cp 08/30 17:59 Interpretation: ETOH 37; Reviewed. 08/30 16:52 Order name: Urine Dipstick-Ancillary; Complete Time: 17:18 EDOK 08/30 17:18 Interpretation: Normal except: UGLUC 2+. cp 08/30 21:40 Order name: COVID-19 SARS RT PCR (Document "Date of Onset" if Symptomatic) tw5 08/30 22:52 Order name: SARS-COV-2 RT PCR EDOK 08/30 15:42 Order name: XRAY Chest (1 view); Complete Time: 16:27 08/30 16:27 Interpretation: Report reviewed. 08/30 15:42 Order name: EKG; Complete Time: 15:43 08/30 15:42 Order name: Cardiac monitoring; Complete Time: 16:38 cp 08/30 15:42 Order name: EKG - Nurse/Tech; Complete Time: 15:44 08/30 15:42 Order name: IV Saline Lock; Complete Time: 16:38 08/30 23:02 Order name: Glucose, Ancillary Testing EDOK 08/30 23:58 Order name: Troponin High Sensitivity EDMS 08/31 02:05 Order name: CBC with Automated Diff EDMS 08/31 03:30 Order name: Comprehensive Metabolic Panel EDMS 08/31 03:30 Order name: Phosphorus EDMS 08/31 03:30 Order name: Troponin High Sensitivity EDMS 08/31 03:30 Order name: Magnesium EDMS 08/31 04:17 Order name: Lipid Profile EDMS 08/31 08:50 Order name: Glucose, Ancillary Testing EDMS 08/30 15:42 Order name: Labs collected and sent; Complete Time: 16:38 cp 08/30 15:42 Order name: O2 Per Protocol; Complete Time: 16:38 cp 08/30 15:42 Order name: O2 Sat Monitoring; Complete Time: 16:38 cp 08/30 15:42 Order name: Urine Dipstick-Ancillary (obtain specimen); Complete Time: 16:52 cp EC:45 Rate is 98 beats/min. Rhythm is regular. OK interval is normal. QRS interval is normal. cp QT interval is normal. T waves are Flattened in lead aVL. Interpreted by me. Reviewed by me. Administered Medications: 17:05 Drug: Ativan (LORazepam) 0.5 mg Route: IVP; Site: right antecubital; ab2 17:16 Follow up: Response: No adverse reaction bp 20:31 Drug: Ativan (LORazepam) 0.5 mg Route: IVP; Site: right antecubital; lg3 20:32 Follow up: Response: No adverse reaction lg3 Disposition Summary: 08/30/21 19:43 Hospitalization Ordered Hospitalization Status: Observation cp Provider: Bud Ramirez cp Condition: Stable cp Problem: new cp Symptoms: have improved cp Bed/Room Type: Standard cp Location: Telemetry/MedSurg (observation)(08/31/21 08:32) eb Room Assignment: [facility](08/31/21 08:32) Diagnosis - Syncope Near cp - Palpitations cp Forms: - Medication Reconciliation Form cp - SBAR form cp Signatures: Dispatcher [employer] EDMS Howard Renae PA PA cp Crystal Christian Lacie, RN RN mary3 Hellen Pedro 5 Jazmine Solorio RN RN jh5 Fred Lynn2 Pepe Vergara RN bp Corrections: (The following items were deleted from the chart) 15:31 15:30 Allergies: No Known Allergies; [place] [id number] 15:31 15:30 PSHx: Stented artery; [place] [id number] 20:33 19:43 Telemetry/MedSurg (observation) [facility] 20:33 19:43 cp 5 08/31 08:32 08/30 20:33 [facility] ER HOLD tw5 eb 08/31 08:32 08/30 20:33 ERHOLD- [facility] eb
[2021-08-30 20:04] LABS: Absolute Lymphocytes (CBC) 0.9 K/uL (0.7-4.9); Hematocrit 42.2 % (39.6-49.0); Lymphocytes % 18.1 % (15.3-44.8); MPV 9.3 fL (7.6-11.3); RBC Red Blood Cell Count 4.92 M/uL (4.33-5.43)
[2021-08-30] MEDS ORDERED: NA CHLORIDE 0.9% 1,000 ML IV SCH (22:11)
[2021-08-30] MEDS ORDERED: ONDANSETRON 4 MG/2 ML VIAL IV PRN (22:11)
[2021-08-30] MEDS ORDERED: ACETAMINOPHEN 500 MG TAB PO PRN (22:11)
[2021-08-30 22:31] VITALS: O2SAT 99
[2021-08-30] MEDS ORDERED: NA CHLORIDE 0.9% 1,000 ML ONE (22:53)
[2021-08-30] MEDS: INSULIN -REGULAR HUMAN 50 UNIT/0.5 ML ML SQ SCH (22:56)
--- NOTE | 2021-08-30 23:12 | P.HP ---
Certification for Inpatient Patient admitted to: Observation With expected LOS: <2 Midnights Patient will require the following post-hospital care: None Practitioner: I am a practitioner with admitting privileges, knowledge of patient current condition, hospital course, and medical plan of care. Services: Services provided to patient in accordance with Admission requirements found in Title 42 Section 412.3 of the Code of Federal Regulations Patient History Date of Service: 08/30/21 Reason for admission: palpitations, near syncope History of Present Illness: Mr. Sanders is a 56 yo M with CAD, DM, history of benign pancreatic tumor s/p whipple procedure with resultant diabetes who presents with palpitations and sensation that his heart rate is irregular. He says that he walked up a flight of stairs and then he had to sit down because his heart was pounding. He reports SOB and worried he was going to pass out. Denies chest pain, dizziness, blurry vision. At bedside, he feels okay, but reports fatigue. He says he had COVID 3 weeks ago and received the Regeneron infusion. He says since arrival to the ED he has felt find. He notes over the past 3 weeks he has had mild pain on the left side of his chest, unsure if it is chest wall pain or his heart. Allergies Penicillins Allergy (Verified 08/30/21 22:11) Hives - Past Medical/Surgical History -: DM -: CAD -: benign pancreatic tumor -: 3 cardiac stents -: whipple procedure - Family History Family History: Reviewed- Non-Contributory - Social History Smoking Status: Never smoker Alcohol use: Yes CD- Drugs: No Caffeine use: Yes Place of Residence: Home Review of Systems 10-point ROS is otherwise unremarkable Respiratory: Shortness of Breath Cardiovascular: Palpitations Physical Examination - Physical Exam General: Alert, In no apparent distress HEENT: Atraumatic, PERRLA, Mucous membr. moist/pink, EOMI, Sclerae nonicteric Neck: Supple, 2+ carotid pulse no bruit, No LAD, Without JVD or thyroid abnormality Respiratory: Clear to auscultation bilaterally, Normal air movement Cardiovascular: Regular rate/rhythm, Normal S1 S2 Gastrointestinal: Normal bowel sounds, No tenderness Musculoskeletal: No tenderness Integumentary: No rashes Neurological: Normal gait, Normal speech, Normal strength at 5/5 x4 extr, Normal tone, Normal affect Lymphatics: No axilla or inguinal lymphadenopathy - Studies Laboratory Data (last 24 hrs) 08/30/21 16:25: PT 11.1, INR 0.97 08/30/21 16:25: WBC 5.00, Hgb 14.2, Hct 42.2, Plt Count 183 08/30/21 16:25: Sodium 140, Potassium 3.6, BUN 16, Creatinine 0.93, Glucose 112 H, Magnesium 2.0, Total Bilirubin 0.9, AST 28, ALT 36, Alkaline Phosphatase 71 Assessment and Plan - Problems (Diagnosis) (1) T2DM (type 2 diabetes mellitus) Current Visit: Yes Status: Chronic 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 transplanted heart: [place] heart Associated angina: without angina Qualified Code(s): I25.10 - Atherosclerotic heart disease of [place] coronary artery without angina pectoris (3) Pancreatic tumor Current Visit: Yes Status: Chronic (4) Near syncope Current Visit: Yes Status: Acute (5) Palpitations Current Visit: Yes Status: Acute - Plan on tele orthostatic VS gentle IV fluid hydration trend troponin, repeat EKG lipid profile, A1c pending DVT ppx reconcile and continue home medications Discharge Plan: Home Plan to discharge in: 24 Hours - Advance Directives Does patient have a Living Will: No Does patient have a Durable POA for Healthcare: No - Code Status/Comfort Care Code Status Assessed: Yes (full code ) Critical Care: No Time Spent Managing Pts Care (In Minutes): 70
[2021-08-31 01:49] LABS: Absolute Lymphocytes (CBC) 1.5 K/uL (0.7-4.9); Hematocrit 38.1 % (39.6-49.0); Lymphocytes % 26.7 % (15.3-44.8); MPV 8.8 fL (7.6-11.3); RBC Red Blood Cell Count 4.43 M/uL (4.33-5.43)
[2021-08-31 03:00] VITALS: BMI 23.7
[2021-08-31 03:29] LABS: Albumin 3.6 g/dL (3.4-5.0); Bilirubin Total 0.7 mg/dL (0.2-1.0); Magnesium 2.2 mg/dL (1.8-2.4); Phosphorus 4.1 mg/dL (2.5-4.9); Potassium 3.7 mmol/L (3.5-5.1); Protein, Total 6.5 g/dL (6.4-8.2); Troponin High Sensitivity 14.1 pg/mL (<58.9)
[2021-08-31 04:22] LABS: T3 Free 2.58 pg/mL (2.18-3.98); Thyroid Stimulating Hormone 1.13 uIU/mL (0.360-3.740)
[2021-08-31] MEDS: INSULIN -REGULAR HUMAN 50 UNIT/0.5 ML ML SQ SCH (07:30)
[2021-08-31] MEDS ORDERED: INFLUENZA VACCINE (for 6+ mo) 0.5 ML DOSE IMVAC ONE (08:00)
[2021-08-31 08:45] VITALS: BP 107/76
[2021-08-31] MEDS ORDERED: ENOXAPARIN 40 MG/0.4 ML SQ SCH (09:00)
[2021-08-31] MEDS ORDERED: ENOXAPARIN 40 MG/0.4 ML SQ ONE (09:57)
--- NOTE | 2021-08-31 11:06 | P.DS ---
Admission Date: 08/30/21 Discharge Date: 08/31/21 Disposition: ROUTINE DISCHARGE Discharge Condition: FAIR Reason for Admission: palpitations, near syncope - Problems (1) Palpitations Status: Acute (2) CAD (coronary artery disease) Status: Chronic Qualifiers: Coronary Disease-Associated Artery/Lesion type: [place] artery [place] vs. 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 Sanders is a 56 yo M with CAD, DM, history of benign pancreatic tumor s/p whipple procedure with resultant diabetes who presented with palpitations and sensation that his heart rate is irregular. He says that he walked up a flight of stairs and then he had to sit down because his heart was pounding. He reports SOB and worried he was going to pass out. Denied chest pain, dizziness, blurry vision. Symptoms resolved by the time he got to the ED. He says he had COVID 3 weeks ago and received the Regeneron infusion. Initial troponin negative. EKG demonstrates a sinus rhythm, chest x-ray unremarkable. Patient placed in observation for further evaluation. Hospital Course: Patient placed under observation on the medical floor. Troponin trended negative. Patient was in sinus rhythm throughout the hospital stay, no arrhythmia. He was also asymptomatic. Case discussed with cardiology-Dr. Holman who agrees to follow-up with him in the office for further evaluation and management. Patient with a significant history of coronary artery disease status post multiple stents. He is prescribed aspirin and Plavix. Patient was borderline bradycardic and so did not prescribe any beta-guero. Vital Signs/Physical Exam: Temp Pulse Resp BP Pulse Ox 63 14 107/76 97 08/31/21 08:00 08/31/21 08:00 08/31/21 08:00 08/31/21 08:00 General: Alert, In no apparent distress, Oriented x3 HEENT: Mucous membr. moist/pink Neck: JVD not distended Respiratory: Clear to auscultation bilaterally, Normal air movement Cardiovascular: No edema, Regular rate/rhythm, Normal S1 S2 Gastrointestinal: Normal bowel sounds, Soft and benign, Non-distended, No tenderness Musculoskeletal: No swelling Integumentary: No rashes, No erythema Neurological: Normal speech, Normal strength at 5/5 x4 extr Laboratory Data at Discharge: WBC 5.70 K/uL (4.3-10.9) 08/31/21 01:36 Hgb 12.9 g/dL (13.6-17.9) L 08/31/21 01:36 Hct 38.1 % (39.6-49.0) L 08/31/21 01:36 Plt Count 171 K/uL (152-406) 08/31/21 01:36 PT 11.1 SECONDS (9.5-12.5) 08/30/21 16:25 INR 0.97 08/30/21 16:25 Sodium 142 mmol/L (136-145) 08/31/21 01:36 Potassium 3.7 mmol/L (3.5-5.1) 08/31/21 01:36 BUN 16 mg/dL (7-18) 08/31/21 01:36 Creatinine 0.90 mg/dL (0.55-1.3) 08/31/21 01:36 Glucose 97 mg/dL (74-106) 08/31/21 01:36 Phosphorus 4.1 mg/dL (2.5-4.9) 08/31/21 01:36 Magnesium 2.2 mg/dL (1.8-2.4) 08/31/21 01:36 Total Bilirubin 0.7 mg/dL (0.2-1.0) 08/31/21 01:36 AST 25 U/L (15-37) 08/31/21 01:36 ALT 31 U/L (12-78) 08/31/21 01:36 Alkaline Phosphatase 65 U/L (45-117) 08/31/21 01:36 Triglycerides 86 mg/dL (<150) 08/31/21 01:36 Cholesterol 95 mg/dL (<200) 08/31/21 01:36 HDL Cholesterol 43 mg/dL (40-60) 08/31/21 01:36 Cholesterol/HDL Ratio 2.21 08/31/21 01:36 Home Medications: ALPRAZolam [Xanax] 0.5 mg PO BID PRN #20 tab 08/31/21 Aspirin [Aspirin EC] 81 mg PO DAILY #30 tablet. 08/31/21 Clopidogrel Bisulfate [Plavix] 75 mg PO DAILY #30 tablet 08/31/21 New Medications: Aspirin [Aspirin EC] 81 mg PO DAILY #30 tablet. Clopidogrel Bisulfate [Plavix] 75 mg PO DAILY #30 tablet ALPRAZolam [Xanax] 0.5 mg PO BID PRN #20 tab PRN Reason: Anxiety Diet: AHA Activity: Ad kaye Followup: NONE,NONE [Primary Care Provider] - Naga Holman MD [ACTIVE - CAN ADMIT] - 1 Week
[2021-08-31 12:27] VITALS: TEMP 98.7
== END 2021-08-31 11:29 | disposition home or self-care (01) ==
LOC: ER 15:19 → ERHOLD 20:09
PROVIDERS: ADMIT Internal Medicine; ATTEND Internal Medicine
DX: R00.2 Palpitations (principal); I25.10 Atherosclerotic heart disease of native coronary artery without angina pectoris; E11.9 Type 2 diabetes mellitus without complications; I25.2 Old myocardial infarction; Z86.16 Personal history of COVID-19; Z95.5 Presence of coronary angioplasty implant and graft; Z98.890 Other specified postprocedural states; Z88.0 Allergy status to penicillin; Z20.822 Contact with and (suspected) exposure to COVID-19
CPT/HCPCS: 93005; 85025 ×2; 80048; 36415; 80320; 83735 ×2; 84100; 85610; 80061; 82947 ×2; 80076; 84443; 81003; 83036; 84484 ×3; 84481; 80053; 83880; 80307; 71045; 94760 ×2; 96374; 99285; U0003; J1650; J7030; G0378 ×3